=== PATIENT | male | born 1950 | race Caucasian/White ===

== ENCOUNTER → 2017-03-01 | Outpatient (CLI) | payer OTHER ==
[~2017-03-01] MED LIST: ATV5X PO; CITA40TA4 PO; GLC/500 PO; HYDR50CA2 PO; IPRA1AER2 INH; LVQ500 PO; METO25TA56 PO; PANT40TA PO; PRVHFAIN INH; RSP1 PO; SIMV10TA2 PO; TRAZ50TA35 PO
--- NOTE | 2017-03-01 16:16 | DIAGNOSTIC IMAGING REPORT ---
LUMBAR SPINE MRI HISTORY: CHRONIC LEFT SIDED BACK Pain; sciatica TECHNIQUE: Multiplanar multisequence MRI of the lumbar spine was performed without the use of contrast. COMPARISON: Lumbar spine 11/17/2014. FINDINGS: For the purpose of the report the L5-S1 disc space will be located on axial image 27 of 30. Motion artifact resulting in suboptimal evaluation of the lumbar spine. Alignment and curvature are intact. No fracture or subluxation. The conus terminates at the L1 level. Diffuse disc desiccation with minimal disc space narrowing at L3-L4. Paraspinal soft tissues are unremarkable. Moderate facet degenerative changes at L4-L5. There are few scattered small vertebral body hemangiomas measuring up to 7 mm L1-L2: No significant central canal or neural foraminal narrowing. L2-L3: No significant central canal or neural foraminal narrowing. L3-L4: Small broad-based posterior disc bulge without significant central canal or neural foraminal narrowing. L4-L5: Small broad-based posterior disc bulge with facet hypertrophy. This results in mild central canal and mild bilateral neural foraminal narrowing. L5-S1: No significant central canal or neural foraminal narrowing. IMPRESSION: 1. Motion artifact resulting in suboptimal evaluation of the lumbar spine. 2. No fracture or subluxation. 3. Small broad-based posterior disc bulge with facet hypertrophy at L4-L5 resulting in mild central canal and mild bilateral neural foraminal narrowing. Electronically signed by: Pedrito Mitchell M.D. 03/01/2017 4:13 PM Dictated Date/Time: 03/01/2017 4:08 PM
== END | disposition home or self-care (01) ==
LOC: C.MRI 14:08
PROVIDERS: ATTEND Internal Medicine
DX: M54.42 Lumbago with sciatica, left side (principal); G89.29 Other chronic pain; M51.26 Other intervertebral disc displacement, lumbar region

== ENCOUNTER 2023-04-18 17:15 | Inpatient (IN) ==
[2023-04-18 17:49] LABS: Basophils # (auto) 0.03 K/uL (0-0.2); Basophils % (auto) 0.4 %; Eosinophils # (auto) 0.06 K/uL (0-0.50); Eosinophils % (auto) 0.8 %; Hematocrit (blood only) 37.1 % (42.0-52.0); Hemoglobin 12.6 g/dl (14.0-18.0); Immature Granulocytes # (auto) 0.02 K/uL (0.01-0.20); Immature Granulocytes % (auto) 0.3 %; Lymphocytes % (auto) 21.1 %; Mean Corpuscular Hemoglobin 31.3 pg (25.0-34.0); Mean Corpuscular Volume 92.3 fL (80.0-100.0); Mean Platelet Volume 10.9 fL (9.4-12.4); Monocytes # (auto) 0.63 K/uL (0.11-0.59); Monocytes % (auto) 8.3 %; Neutrophils # (auto) 5.23 K/uL (1.40-6.50); Neutrophils % (auto) 69.1 %; Platelet Count 201 K/uL (130-400); RDW Coefficient of Variation 12.1 % (11.5-14.5); RDW Standard Deviation 41.1 fL (36.4-46.3); Red Blood Count 4.02 M/uL (4.70-6.10); White Blood Count 7.57 K/ul (4.8-10.8)
[2023-04-18] MEDS ORDERED: ACETAMINOPHEN 1,000 MG/100 ML VIAL IV STA (18:03)
[2023-04-18 18:07] LABS: Albumin Globulin Ratio 1.5 (0.9-2); Albumin Level 4.4 gm/dl (3.4-5.0); BUN Creatinine Ratio 12.4 (10-20); Bilirubin,Total 0.5 mg/dl (0.2-1.0); Calcium 9.4 mg/dl (8.6-10.3); Creatinine Clr Calc Pharmacy 43.3 ml/min; Est GFR (African American) 48.1 ml/min; Est GFR (Non-African American) 41.5 ml/min; Magnesium 1.5 mg/dl (1.7-2.4); Potassium 4.8 mmol/L (3.5-5.1); Total Protein 7.4 gm/dl (6.0-8.3)
[2023-04-18 18:13] LABS: Troponin I High Sensitivity 4.7 pg/ml (0-20)
--- NOTE | 2023-04-18 18:14 | Emergency Department Note ---
Impression & Plan Brain TIA, Hypomagnesemia, ERIC (acute kidney injury) Admit to the [facility] ED Provider Note NAME: SOSA SAMS AGE: 72 SEX: M ARRIVES VIA: Ambulance INFORMANT: Patient ED PROVIDER(S): Mary Lazo DO CHIEF COMPLAINT: Fall PLAN: Disposition: Admit to the [facility] Condition: Fair MEDICAL DECISION MAKING: This is a 72-year-old male patient who presents to the emergency department afte r suffering a fall at home where he was unable to get up. The patient explains that he was stooping down to plug in his moped when he lost his balance and fell forward. He was on the floor for approximately 1 hour when he pushed his medic alert pendant. EMS found the patient with right-sided facial droop, right arm weakness and right leg weakness. Upon arrival in the emergency department, his neurological symptoms seem to have improved slightly. By the time I evaluated him, they had resolved. Laboratory studies revealed mild anemia with a hemoglobin of 12.6. There was no leukocytosis. The patient did have mild kidney injury with a creatinine of 1.61. He was hypomagnesemic with a magnesium of 1.5. This was replaced with a gram of IV magnesium. Patient appeared to be moderately dehydrated on physical exam and this could account for his ERIC. He was given a fluid bolus of IV normal saline solution. I discussed the case with the patient's sister who helps care for him. She states that his mental status had seemed normal the last time she spoke with him. She denies that he has ever had a TIA or CVA before. He went for CT scan of the brain here in the emergency department which was unremarkable. The patient did complain of low back pain as a result of the fall. CT scan of the lumbar spine was negative for any acute traumatic injury. [facility] to the [facility]. Triage Nursing notes reviewed and agree with them. Additional history obtained from EMS and I spoke with the patient's sister who last saw him 6 days ago. External records were reviewed from the [facility] system Vital Signs: reviewed and unremarkable Differential diagnosis: CVA, TIA, renal failure, electrolyte imbalance, lumbar fracture ER treatment provided: Cardiac monitoring EKG IV normal saline bolus IV Tylenol IV magnesium IV fentanyl Diagnostics interpreted by me: ECG: Sinus tachycardia at a rate of [address] segment elevation or signs of ischemia. There is no ectopy. Cardiac Monitoring: Sinus tachycardia at 110 Laboratory studies: See below Imaging studies: As per radiology CT brain: See radiology report HPI: 72/M arrives for evaluation of fall and back pain. Patient explains to me that he was stooping down to plug in his moped when he lost his balance and fell forward and was unable to get up off the floor. He used his medic alert pendant to summons EMS. When EMS arrived on scene, they found the patient to have right-sided facial droop and right arm and leg weakness. They also felt that he was leaning to the right. He also seem to have some confusion and difficulty answering questions. PAST MEDICAL HISTORY:Diabetes, COPD, hyperlipidemia, GERD SOCIAL HISTORY:Patient lives alone; his sister provides meals and organizes his meds HOME MEDICATIONS:See list ALLERGIES:See list VITALS:See Below PHYSICAL EXAMINATION: HEENT: Head - normocephalic and atraumatic. Pupils are equal, round, and reactive to light. Extraocular eye muscles are intact and sclera are anicteric. Nose - moist nasal mucosa without discharge. Mouth - moist buccal mucosa. There is old food noted about his mouth. Oropharynx is nonerythematous and there is no tonsillar exudate or edema noted. Neck: Supple; no cervical lymphadenopathy Heart: Tachycardic rate and rhythm. There is a normal S1 and S2 with no murmurs, clicks, or gallops appreciated. Lungs: Clear to auscultation bilaterally with no wheezes, rales, or rhonchi. Abdomen: Soft, completely nontender, nondistended, with good bowel sounds. There are no palpable pulsatile masses or hepatosplenomegaly. There is no guarding, rigidity, or rebound noted. Extremities: No evidence of cyanosis, clubbing, or edema. There are easily palpable peripheral pulses. Neuro:The patient is awake and alert, oriented to place but was confused with the month. His muscle strength is 5/5 in all 4 extremities. The patient has equal early childhood special educator strength and equal pedal push and pull. There are no cerebellar signs. Back: Patient has some mild reproducible discomfort with palpation over the l umbar spine. ED COURSE: Times/Reassessments: 1730: The patient was evaluated in room B12. A complete history and physical was performed. A full neuro exam was performed and the patient's right-sided weakness seems to have resolved. The patient went for CT scan of the brain. An order was placed for continuous cardiac monitoring. The patient was in a sinus tachycardia at 110. Patient was given IV Tylenol for his significant low back pain. He went on to have a CT scan of the lumbar spine to rule out fracture as this complaint of back pain was new for him. I did discuss the case with the patient's sister who helps care for him. Patient was given a dose of IV fentanyl for his persistent back pain I reviewed the results of the labs and CT scans with the patient and [facility] and [facility] will [facility] for further management. 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 Beliefs That Will Affect Care: None Current Living Situation: Alone Other Information That Helps Us Care for You: No Feels Safe at Home: Yes Safety Concerns: Feels Safe At This Time Assistive Devices: None Allergies Allergies Allergy/AdvReac Type Severity Reaction Status Date / Time iodine AdvReac Intermediate FEELS WARM Verified 04/18/23 18:44 ALL OVER morphine AdvReac Intermediate NAUSEA/VOMI Verified 04/18/23 18:44 TING Penicillins AdvReac Intermediate NAUSEA/VOMI Verified 04/18/23 18:44 TING Home Meds Home Medications Medication Instructions Recorded Confirmed citalopram 40 mg tablet 40 mg PO DAILY 01/31/20 04/18/23 gabapentin 100 mg capsule 100 mg PO TID 01/31/20 04/18/23 hydroxyzine HCl 25 mg tablet 25 mg PO BID 01/31/20 04/18/23 metformin 500 mg tablet 500 mg PO TIDM 01/31/20 04/18/23 pantoprazole 40 mg tablet,delayed 40 mg PO DAILYBB 01/31/20 04/18/23 release risperidone 2 mg tablet 2 mg PO HS 01/31/20 04/18/23 simvastatin 10 mg tablet 10 mg PO HS 01/31/20 04/18/23 trazodone 50 mg tablet 50 mg PO HS 01/31/20 04/18/23 albuterol sulfate 90 mcg/actuation 2 puff inhalation Q4H PRN Wheezing 04/18/23 04/18/23 aerosol inhaler (ProAir HFA) cyanocobalamin (vitamin B-12) 500 500 mcg PO Q OTHER DAY 04/18/23 04/18/23 mcg tablet (Vitamin B-12) lisinopril 5 mg tablet 5 mg PO QAM 04/18/23 04/18/23 aspirin 81 mg PO DAILY 04/19/23 04/19/23 Results & Data (ED) Vital Signs Vital Signs - 24 hr 04/18/23 17:26 04/18/23 17:30 04/18/23 17:20 Temperature 37.7 C H Temperature Source Oral Pulse Rate 106 H 100 H Pulse Rate [Left Finger] Pulse Rate from SpO2 Sensor Pulse Rhythm Regular Pulse Rhythm [Left Finger] Pulse Strength Normal Pulse Strength [Left Finger] Respiratory Rate 16 Respiratory Effort / Characteristics Non-Labored Spontaneous Respiratory Depth Normal Respiratory Pattern Regular Blood Pressure 121/72 Blood Pressure [Left Arm] Blood Pressure Mean 88 Blood Pressure Mean [Left Arm] Blood Pressure Position Sitting Blood Pressure Position [Left Arm] Pulse Oximetry 91 90 Oxygen Delivery Method Room Air Room Air Oxygen Flow Rate Sepsis Recent Fever Within 48 Hours Yes Sepsis New/Unexplained Change in Mental Status Yes Sepsis Action Taken by Nursing No Action Required 04/18/23 17:30 04/18/23 18:40 04/18/23 20:00 Temperature Temperature Source Pulse Rate Pulse Rate [Left Finger] 89 75 75 Pulse Rate from SpO2 Sensor Pulse Rhythm Pulse Rhythm [Left Finger] Regular Pulse Strength Pulse Strength [Left Finger] Normal Respiratory Rate 20 14 16 Respiratory Effort / Characteristics Non-Labored Spontaneous Respiratory Depth Normal Respiratory Pattern Regular Blood Pressure Blood Pressure [Left Arm] 119/70 146/85 H 146/79 H Blood Pressure Mean Blood Pressure Mean [Left Arm] 86 105 101 Blood Pressure Position Blood Pressure Position [Left Arm] Sitting Sitting Pulse Oximetry 91 94 94 Oxygen Delivery Method Room Air Room Air Oxygen Flow Rate Sepsis Recent Fever Within 48 Hours Sepsis New/Unexplained Change in Mental Status Sepsis Action Taken by Nursing 04/18/23 21:10 04/18/23 22:00 04/18/23 23:00 Temperature Temperature Source Pulse Rate 86 Pulse Rate [Left Finger] 85 Pulse Rate from SpO2 Sensor Pulse Rhythm Pulse Rhythm [Left Finger] Pulse Strength Pulse Strength [Left Finger] Respiratory Rate 18 Respiratory Effort / Characteristics Respiratory Depth Respiratory Pattern Blood Pressure 130/75 Blood Pressure [Left Arm] 113/79 Blood Pressure Mean 86 Blood Pressure Mean [Left Arm] 90 Blood Pressure Position Blood Pressure Position [Left Arm] Pulse Oximetry 97 Oxygen Delivery Method Nasal Cannula Oxygen Flow Rate 2 Sepsis Recent Fever Within 48 Hours Sepsis New/Unexplained Change in Mental Status Sepsis Action Taken by Nursing 04/18/23 23:00 04/18/23 23:20 04/18/23 23:40 Temperature Temperature Source Pulse Rate 79 76 83 Pulse Rate [Left Finger] Pulse Rate from SpO2 Sensor 78 76 84 Pulse Rhythm Pulse Rhythm [Left Finger] Pulse Strength Pulse Strength [Left Finger] Respiratory Rate 15 15 15 Respiratory Effort / Characteristics Respiratory Depth Respiratory Pattern Blood Pressure Blood Pressure [Left Arm] Blood Pressure Mean Blood Pressure Mean [Left Arm] Blood Pressure Position Blood Pressure Position [Left Arm] Pulse Oximetry 97 95 96 Oxygen Delivery Method Oxygen Flow Rate Sepsis Recent Fever Within 48 Hours Sepsis New/Unexplained Change in Mental Status Sepsis Action Taken by Nursing 04/19/23 00:00 04/19/23 00:00 04/19/23 00:20 Temperature Temperature Source Pulse Rate 75 83 Pulse Rate [Left Finger] Pulse Rate from SpO2 Sensor 76 81 Pulse Rhythm Pulse Rhythm [Left Finger] Pulse Strength Pulse Strength [Left Finger] Respiratory Rate 16 18 Respiratory Effort / Characteristics Respiratory Depth Respiratory Pattern Blood Pressure 123/73 Blood Pressure [Left Arm] Blood Pressure Mean 100 Blood Pressure Mean [Left Arm] Blood Pressure Position Blood Pressure Position [Left Arm] Pulse Oximetry 97 96 Oxygen Delivery Method Oxygen Flow Rate Sepsis Recent Fever Within 48 Hours Sepsis New/Unexplained Change in Mental Status Sepsis Action Taken by Nursing Laboratory Data 04/18/23 17:34 04/18/23 17:34 Lab Results 04/18/23 04/18/23 04/18/23 Range/Units 17:27 17:34 17:34 WBC 7.57 (4.8-10.8) K/ul RBC 4.02 L (4.70-6.10) M/uL Hgb 12.6 L (14.0-18.0) g/dl Hct 37.1 L (42.0-52.0) % MCV 92.3 (80.0-100.0) fL MCH 31.3 (25.0-34.0) pg MCHC 34.0 (32.0-36.0) g/dL RDW Std Deviation 41.1 (36.4-46.3) fL RDW Coeff of Janel 12.1 (11.5-14.5) % Plt Count 201 (130-400) K/uL MPV 10.9 (9.4-12.4) fL Immature Gran % (Auto) 0.3 % Neut % (Auto) 69.1 % Lymph % (Auto) 21.1 % Yolo % (Auto) 8.3 % Eos % (Auto) 0.8 % Baso % (Auto) 0.4 % Neut # (Auto) 5.23 (1.40-6.50) K/uL Lymph # (Auto) 1.60 (1.2-3.4) K/uL Yolo # (Auto) 0.63 H (0.11-0.59) K/uL Eos # (Auto) 0.06 (0-0.50) K/uL Baso # (Auto) 0.03 (0-0.2) K/uL Immature Gran # (Auto) 0.02 (0.01-0.20) K/uL PT 10.3 (9.0-12.0) Seconds INR 0.9 (0.9-1.1) APTT 24.5 (21.0-31.0) Seconds PTT Ratio 0.9 Sodium (136-145) mmol/L Potassium (3.5-5.1) mmol/L Chloride (98-107) mmol/L Carbon Dioxide (21-32) mmol/L Anion Gap (3-11) BUN (6-23) mg/dl Creatinine (0.6-1.4) mg/dl Est Cr Clr Drug Dosing ml/min Est GFR ( Amer) ml/min Est GFR (Non-Af Amer) ml/min BUN/Creatinine Ratio (10-20) Glucose (70-99(Fasting)) mg/dl POC Glucose 180 H (70-99) mg/dl Calcium (8.6-10.3) mg/dl Magnesium (1.7-2.4) mg/dl Total Bilirubin (0.2-1.0) mg/dl AST (13-39) U/L ALT (7-52) U/L Alkaline Phosphatase (34-104) U/L Total Creatine Kinase (30-223) U/L Troponin I High Sens (0-20) pg/ml Total Protein (6.0-8.3) gm/dl Albumin (3.4-5.0) gm/dl Globulin (2.5-4.0) gm/dl Albumin/Globulin Ratio (0.9-2) Procalcitonin (0-0.5) ng/ml TSH (0.300-4.500) uIu/ml Free T4 (0.61-1.60) ng/dl Urine Color Urine Appearance (Clear) Urine pH (4.5-7.5) Ur Specific Caspian (1.000-1.030) Urine Protein (Negative) Urine Glucose (UA) (Negative) Urine Ketones (Negative) Urine Blood (Negative) Urine Nitrite (Negative) Urine Bilirubin (Negative) Urine Urobilinogen (Negative) Ur Leukocyte Esterase (Negative) Lyme Disease IgG Ab (Negative) Lyme Disease IgM Ab (Negative) SARS-CoV-2, RNA, NAAT (NEGATIVE) Blood Type Antibody Screen 04/18/23 04/18/23 04/18/23 Range/Units 17:34 17:34 17:34 WBC (4.8-10.8) K/ul RBC (4.70-6.10) M/uL Hgb (14.0-18.0) g/dl Hct (42.0-52.0) % MCV (80.0-100.0) fL MCH (25.0-34.0) pg MCHC (32.0-36.0) g/dL RDW Std Deviation (36.4-46.3) fL RDW Coeff of Janel (11.5-14.5) % Plt Count (130-400) K/uL MPV (9.4-12.4) fL Immature Gran % (Auto) % Neut % (Auto) % Lymph % (Auto) % Yolo % (Auto) % Eos % (Auto) % Baso % (Auto) % Neut # (Auto) (1.40-6.50) K/uL Lymph # (Auto) (1.2-3.4) K/uL Yolo # (Auto) (0.11-0.59) K/uL Eos # (Auto) (0-0.50) K/uL Baso # (Auto) (0-0.2) K/uL Immature Gran # (Auto) (0.01-0.20) K/uL PT (9.0-12.0) Seconds INR (0.9-1.1) APTT (21.0-31.0) Seconds PTT Ratio Sodium 135 L (136-145) mmol/L Potassium 4.8 (3.5-5.1) mmol/L Chloride 100 (98-107) mmol/L Carbon Dioxide 26 (21-32) mmol/L Anion Gap 9 (3-11) BUN 20 (6-23) mg/dl Creatinine 1.61 H (0.6-1.4) mg/dl Est Cr Clr Drug Dosing 43.3 ml/min Est GFR ( Amer) 48.1 ml/min Est GFR (Non-Af Amer) 41.5 ml/min BUN/Creatinine Ratio 12.4 (10-20) Glucose 175 H (70-99(Fasting)) mg/dl POC Glucose (70-99) mg/dl Calcium 9.4 (8.6-10.3) mg/dl Magnesium 1.5 L (1.7-2.4) mg/dl Total Bilirubin 0.5 (0.2-1.0) mg/dl AST 14 (13-39) U/L ALT 11 (7-52) U/L Alkaline Phosphatase 93 (34-104) U/L Total Creatine Kinase 63 (30-223) U/L Troponin I High Sens 4.7 (0-20) pg/ml Total Protein 7.4 (6.0-8.3) gm/dl Albumin 4.4 (3.4-5.0) gm/dl Globulin 3.0 (2.5-4.0) gm/dl Albumin/Globulin Ratio 1.5 (0.9-2) Procalcitonin < 0.05 (0-0.5) ng/ml TSH (0.300-4.500) uIu/ml Free T4 (0.61-1.60) ng/dl Urine Color Urine Appearance (Clear) Urine pH (4.5-7.5) Ur Specific Caspian (1.000-1.030) Urine Protein (Negative) Urine Glucose (UA) (Negative) Urine Ketones (Negative) Urine Blood (Negative) Urine Nitrite (Negative) Urine Bilirubin (Negative) Urine Urobilinogen (Negative) Ur Leukocyte Esterase (Negative) Lyme Disease IgG Ab Negative (Negative) Lyme Disease IgM Ab Negative (Negative) SARS-CoV-2, RNA, NAAT (NEGATIVE) Blood Type Antibody Screen 04/18/23 04/18/23 04/18/23 Range/Units 17:34 17:51 21:00 WBC (4.8-10.8) K/ul RBC (4.70-6.10) M/uL Hgb (14.0-18.0) g/dl Hct (42.0-52.0) % MCV (80.0-100.0) fL MCH (25.0-34.0) pg MCHC (32.0-36.0) g/dL RDW Std Deviation (36.4-46.3) fL RDW Coeff of Janel (11.5-14.5) % Plt Count (130-400) K/uL MPV (9.4-12.4) fL Immature Gran % (Auto) % Neut % (Auto) % Lymph % (Auto) % Yolo % (Auto) % Eos % (Auto) % Baso % (Auto) % Neut # (Auto) (1.40-6.50) K/uL Lymph # (Auto) (1.2-3.4) K/uL Yolo # (Auto) (0.11-0.59) K/uL Eos # (Auto) (0-0.50) K/uL Baso # (Auto) (0-0.2) K/uL Immature Gran # (Auto) (0.01-0.20) K/uL PT (9.0-12.0) Seconds INR (0.9-1.1) APTT (21.0-31.0) Seconds PTT Ratio Sodium (136-145) mmol/L Potassium (3.5-5.1) mmol/L Chloride (98-107) mmol/L Carbon Dioxide (21-32) mmol/L Anion Gap (3-11) BUN (6-23) mg/dl Creatinine (0.6-1.4) mg/dl Est Cr Clr Drug Dosing ml/min Est GFR ( Amer) ml/min Est GFR (Non-Af Amer) ml/min BUN/Creatinine Ratio (10-20) Glucose (70-99(Fasting)) mg/dl POC Glucose (70-99) mg/dl Calcium (8.6-10.3) mg/dl Magnesium (1.7-2.4) mg/dl Total Bilirubin (0.2-1.0) mg/dl AST (13-39) U/L ALT (7-52) U/L Alkaline Phosphatase (34-104) U/L Total Creatine Kinase (30-223) U/L Troponin I High Sens (0-20) pg/ml Total Protein (6.0-8.3) gm/dl Albumin (3.4-5.0) gm/dl Globulin (2.5-4.0) gm/dl Albumin/Globulin Ratio (0.9-2) Procalcitonin (0-0.5) ng/ml TSH 4.916 H (0.300-4.500) uIu/ml Free T4 1.02 (0.61-1.60) ng/dl Urine Color Urine Appearance (Clear) Urine pH (4.5-7.5) Ur Specific Caspian (1.000-1.030) Urine Protein (Negative) Urine Glucose (UA) (Negative) Urine Ketones (Negative) Urine Blood (Negative) Urine Nitrite (Negative) Urine Bilirubin (Negative) Urine Urobilinogen (Negative) Ur Leukocyte Esterase (Negative) Lyme Disease IgG Ab (Negative) Lyme Disease IgM Ab (Negative) SARS-CoV-2, RNA, NAAT NEGATIVE (NEGATIVE) Blood Type O Positive Antibody Screen NEGATIVE 04/18/23 Range/Units 23:40 WBC (4.8-10.8) K/ul RBC (4.70-6.10) M/uL Hgb (14.0-18.0) g/dl Hct (42.0-52.0) % MCV (80.0-100.0) fL MCH (25.0-34.0) pg MCHC (32.0-36.0) g/dL RDW Std Deviation (36.4-46.3) fL RDW Coeff of Janel (11.5-14.5) % Plt Count (130-400) K/uL MPV (9.4-12.4) fL Immature Gran % (Auto) % Neut % (Auto) % Lymph % (Auto) % Yolo % (Auto) % Eos % (Auto) % Baso % (Auto) % Neut # (Auto) (1.40-6.50) K/uL Lymph # (Auto) (1.2-3.4) K/uL Yolo # (Auto) (0.11-0.59) K/uL Eos # (Auto) (0-0.50) K/uL Baso # (Auto) (0-0.2) K/uL Immature Gran # (Auto) (0.01-0.20) K/uL PT (9.0-12.0) Seconds INR (0.9-1.1) APTT (21.0-31.0) Seconds PTT Ratio Sodium (136-145) mmol/L Potassium (3.5-5.1) mmol/L Chloride (98-107) mmol/L Carbon Dioxide (21-32) mmol/L Anion Gap (3-11) BUN (6-23) mg/dl Creatinine (0.6-1.4) mg/dl Est Cr Clr Drug Dosing ml/min Est GFR ( Amer) ml/min Est GFR (Non-Af Amer) ml/min BUN/Creatinine Ratio (10-20) Glucose (70-99(Fasting)) mg/dl POC Glucose (70-99) mg/dl Calcium (8.6-10.3) mg/dl Magnesium (1.7-2.4) mg/dl Total Bilirubin (0.2-1.0) mg/dl AST (13-39) U/L ALT (7-52) U/L Alkaline Phosphatase (34-104) U/L Total Creatine Kinase (30-223) U/L Troponin I High Sens (0-20) pg/ml Total Protein (6.0-8.3) gm/dl Albumin (3.4-5.0) gm/dl Globulin (2.5-4.0) gm/dl Albumin/Globulin Ratio (0.9-2) Procalcitonin (0-0.5) ng/ml TSH (0.300-4.500) uIu/ml Free T4 (0.61-1.60) ng/dl Urine Color Yellow Urine Appearance Clear (Clear) Urine pH 5.0 (4.5-7.5) Ur Specific Caspian 1.013 (1.000-1.030) Urine Protein Negative (Negative) Urine Glucose (UA) 2+ H (Negative) Urine Ketones Negative (Negative) Urine Blood Negative (Negative) Urine Nitrite Negative (Negative) Urine Bilirubin Negative (Negative) Urine Urobilinogen Negative (Negative) Ur Leukocyte Esterase Negative (Negative) Lyme Disease IgG Ab (Negative) Lyme Disease IgM Ab (Negative) SARS-CoV-2, RNA, NAAT (NEGATIVE) Blood Type Antibody Screen Administered Medications Acetaminophen (Acetaminophen 325 Mg Tab) 650 mg PO Q4H PRN PRN Reason: Pain or Fever Stop: 05/19/23 01:21 Last Admin: 04/19/23 01:54 Dose: 650 mg Documented By: QG Citalopram Hydrobromide (Citalopram 40 Mg Tab) 40 mg PO DAILY [facility] Stop: 05/19/23 08:59 Last Admin: 04/19/23 08:13 Dose: 40 mg Documented By: PALLAVI Gabapentin (Gabapentin 100 Mg Cap) 100 mg PO TID [facility] Stop: 05/19/23 08:59 Last Admin: 04/19/23 08:13 Dose: 100 mg Documented By: PALLAVI Heparin Sodium (Porcine) (Heparin Sod 5,000 Unit/0.5 Ml Vial) 5,000 units SQ Q8 [facility] Stop: 05/19/23 05:59 Last Admin: 04/19/23 05:48 Dose: 5,000 units Documented By: QG Sodium Chloride (Nss 1000ml) 1,000 mls @ 75 mls/hr IV .[id number] ONE Stop: 04/19/23 13:08 Last Admin: 04/19/23 01:46 Dose: 75 mls/hr Documented By: QG Insulin Aspart (Insulin Aspart Per Unit Charge) 0 units SC ACHS [facility] Stop: 05/19/23 01:21 Last Admin: 04/19/23 08:14 Dose: 2 units Documented By: PALLAVI Co-signed By: DELANEY Admin: 04/19/23 01:52 Dose: 2 units Documented By: SonidoG Co-signed By: LEONARD Insulin Glargine (Lantus Per Unit Charge) 5 units SQ DAILY [facility] Stop: 05/19/23 08:59 Last Admin: 04/19/23 08:14 Dose: 5 units Documented By: PALLAVI Co-signed By: DELANEY Oxycodone HCl (Oxycodone Hcl Ir 5 Mg Tab (Immediate Release)) 5 mg PO Q4H PRN PRN Reason: Pain Stop: 05/03/23 01:21 Last Admin: 04/19/23 11:19 Dose: 5 mg Documented By: Admin: 04/19/23 05:54 Dose: 5 mg Documented By: MICKY Pantoprazole Sodium (Pantoprazole 40 Mg Tab) 40 mg PO DAILYBB FAVIOLA Stop: 05/19/23 06:29 Last Admin: 04/19/23 05:48 Dose: 40 mg Documented By: SonidoG Discontinued Medications Aspirin (Aspirin 81 Mg Chew) 324 mg PO NOW STA Stop: 04/19/23 00:24 Last Admin: 04/19/23 00:37 Dose: 324 mg Documented By: GENNARO Clopidogrel Bisulfate (Clopidogrel Bisulfate 75 Mg Tab) 75 mg PO NOW ONE Stop: 04/19/23 00:24 Last Admin: 04/19/23 00:37 Dose: 75 mg Documented By: GENNARO Fentanyl Citrate (Fentanyl Citrate Pf 100 Mcg/2 Ml Vial) 50 mcg IV NOW STA Stop: 04/18/23 20:19 Last Admin: 04/18/23 20:36 Dose: 50 mcg Documented By: JAC Acetaminophen (Ofirmev) 1,000 mg in 100 mls @ 400 mls/hr IV NOW STA Stop: 04/18/23 18:17 Last Infusion: 04/18/23 18:55 Dose: 0 mls/hr Documented By: Admin: 04/18/23 18:10 Dose: 400 mls/hr Documented By: MARIA M Sodium Chloride (Nss) 500 mls @ 999 mls/hr IV .Q31M ONE Stop: 04/18/23 18:55 Last Infusion: 04/18/23 18:55 Dose: 0 mls/hr Documented By: Admin: 04/18/23 18:25 Dose: 999 mls/hr Documented By: MARIA M Magnesium Sulfate/Dextrose (Magnesium Sulfate / D5w) 1 gm in 100 mls @ 100 mls/hr IV NOW STA Stop: 04/18/23 19:24 Last Infusion: 04/18/23 19:38 Dose: 0 mls/hr Documented By: Admin: 04/18/23 18:38 Dose: 100 mls/hr Documented By: MARIA M Magnesium Sulfate/Dextrose (Magnesium Sulfate / D5w) 1 gm in 100 mls @ 50 mls/hr IV ONE ONE Stop: 04/19/23 01:19 Last Infusion: 04/19/23 01:42 Dose: 0 mls/hr Documented By: Admin: 04/19/23 00:20 Dose: 50 mls/hr Documented By: GENNARO Ondansetron HCl (Ondansetron Inj 2 Mg/Ml 2 Ml Vial) 4 mg IV NOW STA Stop: 04/18/23 20:19 Last Admin: 04/18/23 20:36 Dose: 4 mg Documented By: JAC Imaging Data Radiologist's Impression: Chest X-Ray 04/18/23 23:21 XR chest 1V portable HISTORY: 72 years-old Male fever, renal failure acute fever COMPARISON: Chest CT 01/31/2020 TECHNIQUE: AP view of the chest FINDINGS: Cardiac silhouette is enlarged. Atherosclerosis of the aorta. No pneumothorax, pleural effusion or overt pulmonary edema. Mild subsegmental bibasilar atelectasis. Degenerative changes of the shoulders and spine. Hiatal hernia with epigastric surgical clips. IMPRESSION: No acute process of the chest. ACT 112: Negative or not required by law. The above report was generated using voice recognition software. It may contain grammatical, syntax or spelling errors. Electronically signed by: Ankit Melton M.D. 04/19/2023 8:49 AM Discharge Plan Visit Data Chief Complaint: Stroke/CVA Symptoms Stated Complaint: LIGHTHEADED ED Provider: Mary Lazo Discharge Problem: Brain TIA, Hypomagnesemia, ERIC (acute kidney injury) Patient Disposition: Admitted As Inpatient Discharge Instructions Interventions: ED Discharge Assessment Last Done: 04/19/23 00:47
[2023-04-18] MEDS ORDERED: SODIUM CHLORIDE 0.9% 500 ML IV ONE (18:25)
[2023-04-18] MEDS ORDERED: MAGNESIUM SULFATE / D5W 1 GM/100 ML BAG IV STA (18:25)
[2023-04-18 18:28] LABS: INR 0.9 (0.9-1.1); Partial Thromboplastin Ratio 0.9; Partial Thromboplastin Time 24.5 Seconds (21.0-31.0); Prothrombin Time 10.3 Seconds (9.0-12.0)
--- NOTE | 2023-04-18 19:37 | CT Scan Report ---
CT head/brain wo con CLINICAL HISTORY: neuro deficit, acute stroke suspected Technique: Contiguous axial CT images of the head were acquired from the base of the skull to the kenney juno without intravenous contrast administration. Images were viewed in brain, subdural and bone [facility]. Automated dose lowering techniques and/or adjustment according to patient size were utilized for this exam. Comparison: None available at the time of this dictation. Findings: Areas of decreased attenuation are present in the periventricular and subcortical white matter bilate rally consistent with small vessel ischemic disease. Generalized cerebral atrophy with commensurate e nlargement of the ventricles, sulci, and cisterns is also present. There is no acute intracranial hem orrhage or evidence of acute territorial infarction. No shift of the midline structures, mass effect, or extra-axial abnormalities are shown. Atherosclerotic calcifications are present in the intracran ial segments of the internal carotid arteries. Imaged portions of the paranasal sinuses and mastoid air cells are clear. The orbits appear normal. There are no acute fractures of the calvaria or scalp swelling. Impression: No acute intracranial hemorrhage, no evidence of acute territorial infarction or other acute intracra nial disease process. ACT 112: Negative or not required by law. Electronically signed by: Rickey Montes M.D. 04/18/2023 7:36 PM
[2023-04-18] MEDS ORDERED: fentaNYL citrate PF 100 MCG/2 ML VIAL IV STA (20:18)
[2023-04-18] MEDS ORDERED: ONDANSETRON INJ 2 MG/ML 2 ML VIAL IV STA (20:18)
--- NOTE | 2023-04-18 22:55 | CT Scan Report ---
Exam(s): CT L SPINE EXAM: CT Lumbar Spine Without Intravenous Contrast CLINICAL HISTORY: fall - back pain. TECHNIQUE: Axial computed tomography images of the lumbar spine without intravenous contrast. Automated exposure control was utilized for the study. A dose lowering technique was utilized adhering to the principles of ALARA. COMPARISON: CT lumbar spine dated 01/31/2020 FINDINGS: Vertebrae: The lumbar vertebral body heights are maintained. No anterolisthesis or retrolisthesis noted. The pedicles, facet joints, spinous processes and transverse processes are intact. Hypertrophic changes involving the facet joints, most notable at L4-5 level. Discs/spinal canal/neural foramina: Similar disc space narrowing with marginal anomaly anterior hypertrophic changes throughout the lumbar spine without appreciable alteration from the previous examination. Stable ankylosis of the sacroiliac joints. Soft tissues: No significant acute traumatic paraspinal soft tissue abnormality identified. IMPRESSION: No acute osseous traumatic injury or significant abnormal alignment involving the lumbar spine. No appreciable alteration from the previous examination with stable appearing degenerative changes noted. Electronically signed by: Fuentes Pulido MD 04/18/23 22:54 PM
[2023-04-18] MEDS ORDERED: MAGNESIUM SULFATE / D5W 1 GM/100 ML BAG IV ONE (23:20)
[2023-04-18] MEDS ORDERED: SODIUM CHLORIDE 0.9% 1000ML 1,000 ML IV ONE (23:49)
[2023-04-19 00:04] LABS: Appearance Urine Clear (Clear); Bilirubin Urine Negative (Negative); Blood Urine Negative (Negative); Color Urine Yellow; Glucose Urine UA 2+ (Negative); Ketones Urine Negative (Negative); Leukocyte Esterase Urine Negative (Negative); Nitrite Urine Negative (Negative); Protein Urine Negative (Negative); Specific Gravity Urine 1.013 (1.000-1.030); Urobilinogen Urine Negative (Negative)
[2023-04-19 00:04] LABS: Lyme Ab IgG w/WB Rflx Negative (Negative); Lyme Ab IgM w/WB Rflx Negative (Negative)
[2023-04-19] MEDS ORDERED: ASPIRIN 81 MG CHEW PO STA (00:23)
[2023-04-19] MEDS ORDERED: CLOPIDOGREL BISULFATE 75 MG TAB PO ONE (00:23)
[2023-04-19] MEDS ORDERED: GLUCAGON FOR INJ 1 MG VIAL SQ PRN (01:22)
[2023-04-19] MEDS ORDERED: CARBOHYDRATES FOR HYPOGLYCEMIA PO PRN (01:22)
[2023-04-19] MEDS ORDERED: GLUCOSE 10 TAB/TUBE PO PRN (01:22)
[2023-04-19] MEDS ORDERED: DEXTROSE 50% 50 ML SYRINGE IV PRN (01:22)
[2023-04-19] MEDS ORDERED: PROMETHAZINE HCL 12.5 MG in SODIUM CHLORIDE 0.9% 50 ML IV PRN (01:22)
[2023-04-19] MEDS ORDERED: GLUCOSE 40% GEL 15 GM TUBE PO PRN (01:22)
[2023-04-19 01:45] LABS: Thyroid Stimulating Hormone 4.916 uIu/ml (0.300-4.500)
[2023-04-19] MEDS: INSULIN ASPART PER UNIT CHARGE SC SCH ×5 (01:52→21:57)
[2023-04-19] MEDS: ACETAMINOPHEN 325 MG TAB PO PRN (01:54)
[2023-04-19 02:49] LABS: T4 Free Thyroxine 1.02 ng/dl (0.61-1.60)
--- NOTE | 2023-04-19 03:38 | History & Physical Report ---
Date of Service April 19, 2023 Assessment & Plan (1) TIA (transient ischemic attack): Plan: History CVA as per records ? Aspirin failure ARF Possible syncope rule out orthostasis, cardiac dysfunction, seizures (hx CVA) as differentials hx COPD, stable hypertension, stable hyperlipidemia, statin Rx DM 2 on oral medications, controlled as of recent hemoglobin A1c of 7 last November 2022 chronic back pain chronic anemia, hemoglobin at baseline hx anxiety/mood disorder OBS Medical telemetry Plavix for possible aspirin failure for now MRI/MRA brain, TTE, carotid Dopplers for stroke work-up May need Neurology opinion pending work-up results Check orthostatic vitals, EEG for syncope work-up monitor creatinine response to IVF Hold lisinopril until creatinine back to baseline Basal bolus insulin, ISS BG goal 1 10-1 40, carb count coverage, update hemoglo bin A1c PT OT eval DVT prophylaxis. Heparin subcu Full code Patient requests for his sister to be given periodic updates. Ms. Leeann Shipman, contact #[phone]. Text document was generated using Tynker voice recognition software. It may contain grammatical or spelling errors. Kindly contact undersigned for clarification of any documentation item in question. Admission and Anticipated Discharge Date Admission Date: April 19, 2023 History of Present Illness Chief Complaint: Fall, right-sided weakness, possible syncope Primary Care Provider: Jose Alejandro Krueger MD History obtained from patient and records. Patient is a fair historian. Medical history significant for COPD, hypertension, hyperlipidemia, history CVA, DM 2 on oral medications, GERD, chronic back pain, chronic anemia (baseline hemoglobin 11-12 ), anxiety/mood disorder. Last confinement June 2016 for UTI. Patient slightly not feeling well yesterday afternoon. He got on his scooter to go around his house. Thinks he may have passed out. He woke up on the ground. Denies headache, chest pain, SOB, tongue biting, incontinence. Right side felt weak. Patient able to activate his EMS alert device. Speech may have been slurred as per EMS account. No recent tick bites as per patient. Patient compliant with daily home aspirin although he does not recall having a stroke diagnosis in the past. Patient brought to the ER for evaluation. Right-sided weakness currently much improved. Medical History as above Surgical History : Appendectomy, pressure gastrectomy, cholecystectomy, tonsillectomy, hernia repair, knee surgery Family History : Skin cancer, heart disease, stroke Personal/Social history : Non-smoker, no EtOH intake, disabled Allergies Allergy/AdvReac Type Severity Reaction Status Date / Time iodine AdvReac Intermediate FEELS WARM Verified 04/18/23 18:44 ALL OVER morphine AdvReac Intermediate NAUSEA/VOMI Verified 04/18/23 18:44 TING Penicillins AdvReac Intermediate NAUSEA/VOMI Verified 04/18/23 18:44 TING Home Medications Medication Instructions Recorded Confirmed Type citalopram 40 mg tablet 40 mg PO DAILY 01/31/20 04/18/23 History gabapentin 100 mg capsule 100 mg PO TID 01/31/20 04/18/23 History hydroxyzine HCl 25 mg tablet 25 mg PO BID 01/31/20 04/18/23 History metformin 500 mg tablet 500 mg PO TIDM 01/31/20 04/18/23 History pantoprazole 40 mg tablet,delayed 40 mg PO DAILYBB 01/31/20 04/18/23 History release risperidone 2 mg tablet 2 mg PO HS 01/31/20 04/18/23 History simvastatin 10 mg tablet 10 mg PO HS 01/31/20 04/18/23 History trazodone 50 mg tablet 50 mg PO HS 01/31/20 04/18/23 History albuterol sulfate 90 mcg/actuation 2 puff inhalation Q4H PRN Wheezing 04/18/23 04/18/23 History aerosol inhaler (ProAir HFA) cyanocobalamin (vitamin B-12) 500 500 mcg PO Q OTHER DAY 04/18/23 04/18/23 History mcg tablet (Vitamin B-12) lisinopril 5 mg tablet 5 mg PO QAM 04/18/23 04/18/23 History aspirin 81 mg PO DAILY 04/19/23 04/19/23 History Past Med/Surg History Social History Smoking Status: Never smoker Hx Alcohol Use: No Hx Substance Use: No Preferred Language: Lao Communication Ability: Effective Bull Wheel Worker Required: No Beliefs That Will Affect Care: None Current Living Situation: Alone Other Information That Helps Us Care for You: No Feels Safe at Home: Yes Safety Concerns: Feels Safe At This Time Assistive Devices: None Review of Systems Review of Systems: As per HPI, all other systems reviewed and negative Physical Exam Physical Exam: GENERAL: Comfortable, obese, slightly hard of hearing, no respiratory distress SKIN: Pallor, warm HEENT: Pale palpebral conjunctivae, no ptosis, dry buccal mucosa, nasal cannula in place NECK : Supple, short neck, no tenderness CHEST : CTA, no tenderness HEART : RRR, no obvious murmurs ABDOMEN: Some distention, nontender EXTREMITIES : Minimal LE swelling, no LE tenderness, no other conspicuous deformities noted NEUROLOGIC : Coherent, no facial asymmetry, MMTS BUE 4/5, BLE 3/5 (L>R, chronic as per patient), gait and stance not assessed Results & Data Results & Data Vital Signs (Past 12 Hours) Vital Signs Temp Pulse Pulse Resp BP BP Pulse Ox 04/19/23 01:22 04/19/23 01:22 37.5 C 86 18 128/62 95 04/19/23 00:30 75 12 96 04/19/23 00:30 136/75 04/19/23 00:20 83 18 96 04/19/23 00:00 75 16 97 04/19/23 00:00 123/73 04/18/23 23:40 83 15 96 04/18/23 23:20 76 15 95 04/18/23 23:00 79 15 97 04/18/23 23:00 130/75 04/18/23 22:00 85 18 113/79 97 04/18/23 21:10 86 04/18/23 20:00 75 16 146/79 H 94 04/18/23 18:40 75 14 146/85 H 94 04/18/23 17:30 89 20 119/70 91 04/18/23 17:20 90 04/18/23 17:30 37.7 C H 100 H 16 121/72 91 04/18/23 17:26 106 H O2 Del Method O2 Flow Rate 04/19/23 01:22 Nasal Cannula 2 04/19/23 01:22 Nasal Cannula 2 04/19/23 00:30 04/19/23 00:30 04/19/23 00:20 04/19/23 00:00 04/19/23 00:00 04/18/23 23:40 04/18/23 23:20 04/18/23 23:00 04/18/23 23:00 04/18/23 22:00 Nasal Cannula 2 04/18/23 21:10 04/18/23 20:00 Room Air 04/18/23 18:40 04/18/23 17:30 Room Air 04/18/23 17:20 Room Air 04/18/23 17:30 Room Air 04/18/23 17:26 Laboratory Results Laboratory Results WBC 7.57 K/ul (4.8-10.8) 04/18/23 17:34 RBC 4.02 M/uL (4.70-6.10) L 04/18/23 17:34 Hgb 12.6 g/dl (14.0-18.0) L 04/18/23 17:34 Hct 37.1 % (42.0-52.0) L 04/18/23 17:34 MCV 92.3 fL (80.0-100.0) 04/18/23 17:34 MCH 31.3 pg (25.0-34.0) 04/18/23 17: MCHC 34.0 g/dL (32.0-36.0) 04/18/23 17:34 RDW Std Deviation 41.1 fL (36.4-46.3) 04/18/23 17:34 RDW Coeff of Janel 12.1 % (11.5-14.5) 04/18/23 17:34 Plt Count 201 K/uL (130-400) 04/18/23 17:34 MPV 10.9 fL (9.4-12.4) 04/18/23 17:34 Immature Gran % (Auto) 0.3 % 04/18/23 17:34 Neut % (Auto) 69.1 % 04/18/23 17:34 Lymph % (Auto) 21.1 % 04/18/23 17:34 Early % (Auto) 8.3 % 04/18/23 17:34 Eos % (Auto) 0.8 % 04/18/23 17:34 Baso % (Auto) 0.4 % 04/18/23 17:34 Neut # (Auto) 5.23 K/uL (1.40-6.50) 04/18/23 17:34 Lymph # (Auto) 1.60 K/uL (1.2-3.4) 04/18/23 17:34 Early # (Auto) 0.63 K/uL (0.11-0.59) H 04/18/23 17:34 Eos # (Auto) 0.06 K/uL (0-0.50) 04/18/23 17:34 Baso # (Auto) 0.03 K/uL (0-0.2) 04/18/23 17:34 Immature Gran # (Auto) 0.02 K/uL (0.01-0.20) 04/18/23 17:34 PT 10.3 Seconds (9.0-12.0) 04/18/23 17:34 INR 0.9 (0.9-1.1) 04/18/23 17:34 APTT 24.5 Seconds (21.0-31.0) 04/18/23 17:34 PTT Ratio 0.9 04/18/23 17:34 Sodium 135 mmol/L (136-145) L 04/18/23 17:34 Potassium 4.8 mmol/L (3.5-5.1) 04/18/23 17:34 Chloride 100 mmol/L (98-107) 04/18/23 17:34 Carbon Dioxide 26 mmol/L (21-32) 04/18/23 17:34 Anion Gap 9 (3-11) 04/18/23 17:34 BUN 20 mg/dl (6-23) 04/18/23 17:34 Creatinine 1.61 mg/dl (0.6-1.4) H 04/18/23 17:34 Est Cr Clr Drug Dosing 43.3 ml/min 04/18/23 17:34 Est GFR ( Amer) 48.1 ml/min 04/18/23 17:34 Est GFR (Non-Af Amer) 41.5 ml/min 04/18/23 17:34 BUN/Creatinine Ratio 12.4 (10-20) 04/18/23 17:34 Glucose 175 mg/dl (70-99(Fasting)) H 04/18/23 17:34 POC Glucose 170 mg/dl (70-99) H 04/19/23 01:46 Calcium 9.4 mg/dl (8.6-10.3) 04/18/23 17:34 Magnesium 1.5 mg/dl (1.7-2.4) L 04/18/23 17:34 Total Bilirubin 0.5 mg/dl (0.2-1.0) 04/18/23 17:34 AST 14 U/L (13-39) 04/18/23 17:34 ALT 11 U/L (7-52) 04/18/23 17:34 Alkaline Phosphatase 93 U/L (34-104) 04/18/23 17:34 Total Creatine Kinase 63 U/L (30-223) 04/18/23 17:34 Troponin I High Sens 4.7 pg/ml (0-20) 04/18/23 17:34 Total Protein 7.4 gm/dl (6.0-8.3) 04/18/23 17:34 Albumin 4.4 gm/dl (3.4-5.0) 04/18/23 17:34 Globulin 3.0 gm/dl (2.5-4.0) 04/18/23 17:34 Albumin/Globulin Ratio 1.5 (0.9-2) 04/18/23 17:34 Procalcitonin < 0.05 ng/ml (0-0.5) 04/18/23 17:34 TSH 4.916 uIu/ml (0.300-4.500) H 04/18/23 17:34 Free T4 1.02 ng/dl (0.61-1.60) 04/18/23 17:34 Urine Color Yellow 04/18/23 23:40 Urine Appearance Clear (Clear) 04/18/23 23:40 Urine pH 5.0 (4.5-7.5) 04/18/23 23:40 Ur Specific Lykens 1.013 (1.000-1.030) 04/18/23 23:40 Urine Protein Negative (Negative) 04/18/23 23:40 Urine Glucose (UA) 2+ (Negative) H 04/18/23 23:40 Urine Ketones Negative (Negative) 04/18/23 23:40 Urine Blood Negative (Negative) 04/18/23 23:40 Urine Nitrite Negative (Negative) 04/18/23 23:40 Urine Bilirubin Negative (Negative) 04/18/23 23:40 Urine Urobilinogen Negative (Negative) 04/18/23 23:40 Ur Leukocyte Esterase Negative (Negative) 04/18/23 23:40 Lyme Disease IgG Ab Negative (Negative) 04/18/23 17:34 Lyme Disease IgM Ab Negative (Negative) 04/18/23 17:34 SARS-CoV-2, RNA, NAAT NEGATIVE (NEGATIVE) 04/18/23 21:00 Blood Type O Positive 04/18/23 17:51 Antibody Screen NEGATIVE 04/18/23 17:[address] 04/18/23 17:32 CT head/brain wo con CLINICAL HISTORY: neuro deficit, acute stroke suspected Technique: Contiguous axial CT images of the head were acquired from the base of the skull to the vertex without intravenous contrast administration. Images were viewed in brain, subdural and bone windows. Automated dose lowering techniques and/or adjustment according to patient size were utilized for this exam. Comparison: None available at the time of this dictation. Findings: Areas of decreased attenuation are present in the periventricular and subcortical white matter bilaterally consistent with small vessel ischemic disease. Generalized cerebral atrophy with commensurate enlargement of the ventricles, sulci, and cisterns is also present. There is no acute intracranial hemorrhage or evidence of acute territorial infarction. No shift of the midline structures, mass effect, or extra-axial abnormalities are shown. Atherosclerotic calcifications are present in the intracranial segments of the internal carotid arteries. Imaged portions of the paranasal sinuses and mastoid air cells are clear. The orbits appear normal. There are no acute fractures of the calvaria or scalp swelling. Impression: No acute intracranial hemorrhage, no evidence of acute territorial infarction or other acute intracranial disease process. ACT 112: Negative or not required by law. Electronically signed by: Rickey Montes M.D. 04/18/2023 7:[address] 04/18/23 20:29 Exam(s): CT L SPINE EXAM: CT Lumbar Spine Without Intravenous Contrast CLINICAL HISTORY: fall - back pain. TECHNIQUE: Axial computed tomography images of the lumbar spine without intravenous contrast. Automated exposure control was utilized for the study. A dose lowering technique was utilized adhering to the principles of ALARA. COMPARISON: CT lumbar spine dated 01/31/2020 FINDINGS: Vertebrae: The lumbar vertebral body heights are maintained. No anterolisthesis or retrolisthesis noted. The pedicles, facet joints, spinous processes and transverse processes are intact. Hypertrophic changes involving the facet joints, most notable at L4-5 level. Discs/spinal canal/neural foramina: Similar disc space narrowing with marginal anomaly anterior hypertrophic changes throughout the lumbar spine without appreciable alteration from the previous examination. Stable ankylosis of the sacroiliac joints. Soft tissues: No significant acute traumatic paraspinal soft tissue abnormality identified. IMPRESSION: No acute osseous traumatic injury or significant abnormal alignment involving the lumbar spine. No appreciable alteration from the previous examination with stable appearing degenerative changes noted. Electronically signed by: Fuentes Pulido MD 04/18/23 22:54 PM Diagnostic Findings Chest x-ray as per my interpretation cardiomegaly, atelectasis EKG as per my interpretation : Rate 105, sinus tachycardia, LAD, LAFB, incomplete RBBB, no ischemia Code Status & VTE Plan VTE Prophylaxis Plan VTE Prophylaxis will be ordered: Yes
[2023-04-19] MEDS: PANTOprazole 40 MG TAB PO SCH (05:48)
[2023-04-19] MEDS: HEPARIN SOD 5,000 UNIT/0.5 ML VIAL SQ SCH ×3 (05:48→22:00)
[2023-04-19] MEDS: oxyCODONE HCL IR 5 MG TAB (IMMEDIATE RELEASE) PO PRN ×4 (05:54→23:18)
[2023-04-19 07:48] LABS: Basophils # (auto) 0.02 K/uL (0-0.2); Basophils % (auto) 0.3 %; Eosinophils # (auto) 0.03 K/uL (0-0.50); Eosinophils % (auto) 0.4 %; Hematocrit (blood only) 35.4 % (42.0-52.0); Hemoglobin 11.7 g/dl (14.0-18.0); Immature Granulocytes # (auto) 0.02 K/uL (0.01-0.20); Immature Granulocytes % (auto) 0.3 %; Lymphocytes # (auto) 1.65 K/uL (1.2-3.4); Lymphocytes % (auto) 24.7 %; Mean Corpuscular Hemoglobin 30.7 pg (25.0-34.0); Mean Corpuscular Hgb Conc 33.1 g/dL (32.0-36.0); Mean Corpuscular Volume 92.9 fL (80.0-100.0); Mean Platelet Volume 10.7 fL (9.4-12.4); Monocytes # (auto) 0.57 K/uL (0.11-0.59); Monocytes % (auto) 8.5 %; Neutrophils % (auto) 65.8 %; Platelet Count 189 K/uL (130-400); RDW Coefficient of Variation 12.2 % (11.5-14.5); RDW Standard Deviation 41.7 fL (36.4-46.3); Red Blood Count 3.81 M/uL (4.70-6.10); White Blood Count 6.69 K/ul (4.8-10.8)
[2023-04-19 08:03] LABS: Chol HDL Ratio 2.7 (0-5); Creatinine Clr Calc Pharmacy 52.6 ml/min; Est GFR (African American) 61.7 ml/min; Est GFR (Non-African American) 53.3 ml/min; Potassium 4.8 mmol/L (3.5-5.1)
[2023-04-19] MEDS: GABAPENTIN 100 MG CAP PO SCH ×3 (08:13→22:00)
[2023-04-19] MEDS: CITALOPRAM 40 MG TAB PO SCH (08:13)
[2023-04-19] MEDS: LANTUS PER UNIT CHARGE SQ SCH (08:14)
[2023-04-19 08:45] LABS: Estimated Average Glucose 157 mg/dl; Hemoglobin A1C 7.1 % (4.5-5.6)
--- NOTE | 2023-04-19 08:51 | XRay Report ---
XR chest 1V portable HISTORY: 72 years-old Male fever, renal failure acute fever COMPARISON: Chest CT 01/31/2020 TECHNIQUE: AP view of the chest FINDINGS: Cardiac silhouette is enlarged. Atherosclerosis of the aorta. No pneumothorax, pleural effusion or ov ert pulmonary edema. Mild subsegmental bibasilar atelectasis. Degenerative changes of the shoulders a nd spine. Hiatal hernia with epigastric surgical clips. IMPRESSION: No acute process of the chest. ACT 112: Negative or not required by law. The above report was generated using voice recognition software. It may contain grammatical, syntax o r spelling errors. Electronically signed by: Ankit Melton M.D. 04/19/2023 8:49 AM
--- NOTE | 2023-04-19 10:37 | Electrocardiogram Report ---
Test Reason : Blood Pressure : / mmHG Vent. Rate : 104 BPM Atrial Rate : 104 BPM P-R Int : 164 ms QRS Dur : 084 ms QT Int : 320 ms P-R-T Axes : 025 -02 031 degrees QTc Int : 420 ms Sinus tachycardia Otherwise normal ECG When compared with ECG of 31-JAN-2020 15:00, Vent. rate has increased BY 49 BPM Confirmed by Minh Allen ([id number]) on 04/19/2023 10:37:00 AM Referred By: REFERRED SELF Confirmed By:Minh Allen
--- NOTE | 2023-04-19 12:03 | Ultrasound Report ---
US carotid doppler BI CLINICAL HISTORY: 72 years-old Male with tia. Acute stroke like symptoms COMPARISON: Head CT 04/18/2023, carotid ultrasound 04/09/2013. TECHNIQUE: Multiple real time sonographic images of the carotid bifurcations were obtained assessing mack scale, color Doppler and spectral wave form appearance FINDINGS: RIGHT CAROTID: The peak systolic velocity measured within the right ICA is 103 cm/sec. The end dennison tolic velocity measured 35 cm/sec. The ICA to CCA ratio measured 0.9 which correlates with a stenosi s of 0-50%. Mild atherosclerotic plaque. LEFT CAROTID: The peak systolic velocity measurements in the left ICA is 82 cm/sec. The end diastol ic velocity measured 36 cm/sec. The ICA to CCA ratio measured 0.9 which correlates with a stenosis of 0-50%. Mild to moderate atherosclerotic plaque There is normal antegrade vertebral flow bilaterally. IMPRESSION: 1. No hemodynamically significant stenosis. 2. Normal antegrade vertebral flow bilaterally. ACT 112: Negative or not required by law. The above report was generated using voice recognition software. It may contain grammatical, syntax o r spelling errors. Electronically signed by: Ankit Melton M.D. 04/19/2023 12:01 PM
--- NOTE | 2023-04-19 15:29 | Hospitalist Progress Note ---
Date of Service April 19, 2023 Assessment & Plan (1) Brain TIA: Plan 72-year-old male with PMH of COPD, HTN, HLD, CVA, DM2 on oral meds, GERD, chronic back pain, chronic anemia [baseline hemoglobin 11-12], anxiety/mood disorder presented to the ED 04/18 after possible syncope. Is being managed for the following: Possible syncope: Possible TIA vs Stroke: Patient reports falling on the ground (on his back) while he tried to get on his scooter, reports having some nausea/feeling of vomiting/lightheadedness prior to fall, not sure if he actually lost consciousness but reports he was able to activate his life alert as soon as he fell. Also reports he felt weak on the right side. Admitting labs fairly WNL except for elevated creatinine/ERIC and hypomagnesemia. UA WNL, Lyme screen negative, COVID-negative. CT head/LS-spine CT/CXR/carotid Doppler study: No acute findings Admitting EKG with sinus tach at 104. Echo with EF of 60 to 65%, LV systolic function and RV systolic function normal. No significant valvular pathology. Differential could be orthostatic hypotension, cardiac dysfunction, seizures, TIA Orthostatic vitals negative. MRI brain and MR angio head pending. Continue with telemetry monitoring. EEG pending. Neuro consult. PT/OT. Plavix added. c/w aspirin. Rt sided weakness already resolved on today's exam. Acute kidney injury: Elevated creatinine at 1.61, status post IV fluids, resolved. Abdomen ischemia: Replaced, resolved. Other chronic medical conditions: Resume home meds as able COPD, stable hypertension, stable hyperlipidemia, statin Rx DM 2 on oral medications, controlled as of recent hemoglobin A1c of 7 last November 2022 chronic back pain chronic anemia, hemoglobin at baseline anxiety/mood disorder DVT prophylaxis. Heparin subcu Full code Patient's sister Ms. Leeann Shipman, contact #[phone]. Admission and Anticipated Discharge Date Admission Date: April 19, 2023 Subjective Patient seen and examined at bedside as a follow-up of syncope. Patient was lying in bed, on 2 L nasal cannula oxygen, NAD, patient's sister at bedside, did not appreciate any motor weakness in neurological exam, denies any new acute event overnight, reports eating okay and moving bowels okay, denies headache or fever chills chest pain or belly pain Physical Exam Physical Exam: GENERAL: Alert and oriented x3. NAD, on 2L NC O2 HEENT: No pallor, no icterus. Pupils equal, round and reactive to light. Oral mucosa moist. NECK: No JVD, no neck masses. HEART: S1 and S2 heard. Regular rate and rhythm. No murmur, no gallop. RESPIRATORY SYSTEM: Normal AP diameter. No accessory muscle use. No wheezing, no crackles. ABDOMEN: Soft, bowel sounds present, nontender, no distention. CENTRAL NERVOUS SYSTEM: No facial droop. Speech is clear. Obeys simple commands. Moves extremities. EXTREMITIES: trace ble edema, no erythema seen. Results & Data Results & Data Vital Signs (Past 12 Hours) Vital Signs Temp Pulse Pulse Resp BP Pulse Ox O2 Del Method 04/19/23 12:20 36.6 C 95 H 16 107/70 95 Nasal Cannula 04/19/23 08:19 36.9 C 76 16 128/86 93 Nasal Cannula 04/19/23 07:21 63 04/19/23 04:20 36.7 C 71 20 134/91 97 Nasal Cannula O2 Flow Rate 04/19/23 12:20 2 04/19/23 08:19 2 04/19/23 07:21 04/19/23 04:20 2
[2023-04-19] MEDS: risperiDONE 2 MG TABLET PO SCH (22:00)
[2023-04-19] MEDS: SIMVASTATIN 10 MG TAB PO SCH (22:00)
[2023-04-19] MEDS: traZODone HCL 50 MG TAB PO SCH (22:03)
[2023-04-20] MEDS: ACETAMINOPHEN 325 MG TAB PO PRN (01:25)
[2023-04-20] MEDS: PANTOprazole 40 MG TAB PO SCH (05:12)
[2023-04-20] MEDS: HEPARIN SOD 5,000 UNIT/0.5 ML VIAL SQ SCH ×3 (05:12→20:19)
--- NOTE | 2023-04-20 07:03 | Magnetic Resonance Report ---
MRI OF THE BRAIN WITHOUT CONTRAST CLINICAL HISTORY: Transient ischemic attack. COMPARISON STUDY: MRI of the brain April 09, [address] April 18, 2023. TECHNIQUE: Utilizing a 1.5 Tanja magnet and dedicated coil, multiplanar, multiecho imaging of the bra in was performed without IV contrast. FINDINGS: There are no foci of restricted diffusion to suggest acute infarct. No acute intracranial h emorrhage, midline shift or mass effect is present. There is mild atrophy. Mild white matter T2 hyper intense foci suggest small vessel disease. Basal cisterns are patent. There are no extra-axial collec tions. No intracranial masses identified on this unenhanced exam. Calvarial signal is within normal l imits. There is no evidence for sinusitis. IMPRESSION: No acute intracranial findings. ACT 112: Negative or not required by law. Electronically signed by: Rigoberto Menchaca M.D. 04/20/2023 7:00 AM
--- NOTE | 2023-04-20 07:04 | Magnetic Resonance Report ---
MRA OF THE INTRACRANIAL CIRCULATION WITHOUT CONTRAST CLINICAL HISTORY: Transient ischemic attack. COMPARISON STUDY: MRA of the head April 09, 2013. TECHNIQUE: Utilizing a 1.5 Tanja magnet and 3-D [id number] technique, unenhanced MRA of the intra cranial circulation was obtained. FINDINGS: The bilateral M1, M2, A1 and A2 segments are patent. There is no intracranial aneurysm. No central vessel occlusion is noted. A large right posterior communicating artery is present. There is persistence of the left posterior cerebral artery. Posterior circulation is intact. There is be en no significant change since MRA of April 09, 2013. IMPRESSION: Unremarkable MRA of the head. No central vessel occlusion. No intracranial aneurysm. ACT 112: Negative or not required by law. Electronically signed by: Rigoberto Menchaca M.D. 04/20/2023 7:03 AM
[2023-04-20] MEDS: GABAPENTIN 100 MG CAP PO SCH ×3 (07:17→20:19)
[2023-04-20] MEDS: CITALOPRAM 40 MG TAB PO SCH (07:17)
[2023-04-20] MEDS: ASPIRIN 81 MG ECTAB PO SCH (07:18)
[2023-04-20 08:03] LABS: Hematocrit (blood only) 33.6 % (42.0-52.0); Hemoglobin 11.2 g/dl (14.0-18.0); Mean Corpuscular Hemoglobin 31.5 pg (25.0-34.0); Mean Corpuscular Hgb Conc 33.3 g/dL (32.0-36.0); Mean Corpuscular Volume 94.6 fL (80.0-100.0); Mean Platelet Volume 10.8 fL (9.4-12.4); Platelet Count 180 K/uL (130-400); RDW Coefficient of Variation 11.9 % (11.5-14.5); Red Blood Count 3.55 M/uL (4.70-6.10)
[2023-04-20] MEDS: LANTUS PER UNIT CHARGE SQ SCH (08:04)
[2023-04-20] MEDS: INSULIN ASPART PER UNIT CHARGE SC SCH ×4 (08:04→21:43)
[2023-04-20 08:20] LABS: Calcium 9.2 mg/dl (8.6-10.3); Creatinine Clr Calc Pharmacy 54.3 ml/min; Est GFR (African American) 64.1 ml/min; Est GFR (Non-African American) 55.3 ml/min; Magnesium 1.9 mg/dl (1.7-2.4); Phosphorus 3.3 mg/dl (2.5-4.9); Potassium 4.9 mmol/L (3.5-5.1)
--- NOTE | 2023-04-20 08:55 | Neurology Consultation ---
Date of Consultation April 20, 2023 Assessment & Plan (1) Parkinsonism: With generalized weakness and slurred speech after syncope, I am less concerned for a TIA. The most notable feature on his exam is parkinsonism. Suspect this may be secondary to Risperdal and requires further evaluation as an outpatient. Suspect that the parkinsonism is leading to autonomic dysfunction and may have contributed to the syncopal episode. The patient is already on aspirin and statin and I would not otherwise recommend continuing the plavix for 21 days given the overall low suspicion for a cerebrovascular event. -- Can be discharged on aspirin monotherapy 81mg daily -- Outpatient neuro referral for parkinsonism, suspect secondary to Risperdal -- Please contact us with any further questions Telehealth Consultation Telehealth Information Telehealth Information: I performed this visit using a real-time telehealth connection between my location and the patients location ([facility]). After connecting through interactive tele-video, patient was identified by name and date of and/or wristband check.Patient (or authorized healthcare outside energy sales representatives) was informed that this was a telemedicine visit and it was being conducted confidentially over secure lines. My office door was closed and no one else was present in the room with me.Patient (or authorized healthcare outside energy sales representatives) provided consent to proceed with the visit, expressed an understanding of privacy and security of the telemedicine visit, and gave permission to have a hospital outside energy sales representatives in the room in order to assist with the visit and to conduct portions of the visit, as needed. I informed the patient (or authorized healthcare outside energy sales representatives) that I reviewed their record and presented the opportunity for them to ask any questions regarding the visit today. The patient agreed to participate. History of Present Illness Reason for Consultation: Possible TIA Requesting Physician: Dr. Soliman Attending Physician: Paige Soliman MD History of Present Illness Davin Fernández is a 72 yo M presenting after a syncopal episode at home where he fell. He reports being unable to get up from the ground after the fall due to generalized weakness. He denies any focality. He also reports having slurred speech at the time which has since resolved. Other than back pain he feels back to baseline. He notes that overall his movements have been slower recently but can not specify a timeframe. Regarding this episode, this was the first time he has had syncope and does not think there was any warning or prodrome prior. Allergies Allergy/AdvReac Type Severity Reaction Status Date / Time iodine AdvReac Intermediate FEELS WARM Verified 04/18/23 18:44 ALL OVER morphine AdvReac Intermediate NAUSEA/VOMI Verified 04/18/23 18:44 TING Penicillins AdvReac Intermediate NAUSEA/VOMI Verified 04/18/23 18:44 TING Home Medications Medication Instructions Recorded Confirmed Type citalopram 40 mg tablet 40 mg PO DAILY 01/31/20 04/18/23 History gabapentin 100 mg capsule 100 mg PO TID 01/31/20 04/18/23 History hydroxyzine HCl 25 mg tablet 25 mg PO BID 01/31/20 04/18/23 History metformin 500 mg tablet 500 mg PO TIDM 01/31/20 04/18/23 History pantoprazole 40 mg tablet,delayed 40 mg PO DAILYBB 01/31/20 04/18/23 History release risperidone 2 mg tablet 2 mg PO HS 01/31/20 04/18/23 History simvastatin 10 mg tablet 10 mg PO HS 01/31/20 04/18/23 History trazodone 50 mg tablet 50 mg PO HS 01/31/20 04/18/23 History albuterol sulfate 90 mcg/actuation 2 puff inhalation Q4H PRN Wheezing 04/18/23 04/18/23 History aerosol inhaler (ProAir HFA) cyanocobalamin (vitamin B-12) 500 500 mcg PO Q OTHER DAY 04/18/23 04/18/23 History mcg tablet (Vitamin B-12) lisinopril 5 mg tablet 5 mg PO QAM 04/18/23 04/18/23 History aspirin 81 mg PO DAILY 04/19/23 04/19/23 History Patient History Social History Smoking Status: Never smoker Hx Alcohol Use: No Hx Substance Use: No Preferred Language: Tamazight Communication Ability: Effective Gem Carver Required: No Beliefs That Will Affect Care: None Current Living Situation: Alone Other Information That Helps Us Care for You: No Feels Safe at Home: Yes Safety Concerns: Feels Safe At This Time Assistive Devices: None Review of Systems +generalized weakness, back pain Physical Exam Neurological Examination: Mental Status: Awake and alert. Oriented to person, place, and time. Fluent with hypophonia and slow responses. Comprehension intact, able to follow commands. Some difficulty with naming objects. Affect appropriate. Cranial Nerves: II: Reads NIHSS cards, vail grossly intact. III/IV/: Versions intact without nystagmus, no gaze preference. VII: Facial expression symmetric with hypomimia VIII: Hearing intact to voice XII: Tongue midline Motor: Strength was symmetric and antigravity. Pronator drift was absent. There were no abnormal movements but significant bradykinesia. Reflexes: Unable to assess over telemedicine Results & Data Vital Signs (Past 12 Hours) Vital Signs Temp Pulse Pulse Resp BP Pulse Ox O2 Del Method 04/20/23 07:42 37.4 C 81 16 137/86 93 Room Air 04/19/23 23:59 82 04/20/23 02:49 36.9 C 88 18 124/77 96 Nasal Cannula 04/19/23 23:00 37.5 C 86 19 129/81 95 Nasal Cannula O2 Flow Rate 04/20/23 07:42 04/19/23 23:59 04/20/23 02:49 2 04/19/23 23:00 2 Laboratory Results Abnormal lab results 04/19/23 04/19/23 04/20/23 Range/Units 11:35 20:08 06:49 RBC 3.55 L (4.70-6.10) M/uL Hgb 11.2 L (14.0-18.0) g/dl Hct 33.6 L (42.0-52.0) % Glucose (70-99(Fasting)) mg/dl POC Glucose 143 H 130 H (70-99) mg/dl 04/20/23 04/20/23 Range/Units 06:49 07:31 RBC (4.70-6.10) M/uL Hgb (14.0-18.0) g/dl Hct (42.0-52.0) % Glucose 140 H (70-99(Fasting)) mg/dl POC Glucose 150 H (70-99) mg/dl Diagnostic Findings MRI brain - Unremarkable for acute stroke MRA - Unremarkable CUS - no significant carotid stenosis
[2023-04-20] MEDS ORDERED: CLOPIDOGREL BISULFATE 75 MG TAB PO SCH (09:00)
--- NOTE | 2023-04-20 13:18 | Electroencephalogram ---
EEG Procedure Note Date of Service April 20, 2023 Start / End Times Start Time: 05:51 End Time: 06:11 Referring Physician Luis Alfredo Hart History A 72-year-old male with syncopal episode. EEG performed for evaluation epileptiform activity. Home Medication List Medication Instructions Recorded Confirmed Type citalopram 40 mg tablet 40 mg PO DAILY 01/31/20 04/18/23 History gabapentin 100 mg capsule 100 mg PO TID 01/31/20 04/18/23 History hydroxyzine HCl 25 mg tablet 25 mg PO BID 01/31/20 04/18/23 History metformin 500 mg tablet 500 mg PO TIDM 01/31/20 04/18/23 History pantoprazole 40 mg tablet,delayed 40 mg PO DAILYBB 01/31/20 04/18/23 History release risperidone 2 mg tablet 2 mg PO HS 01/31/20 04/18/23 History simvastatin 10 mg tablet 10 mg PO HS 01/31/20 04/18/23 History trazodone 50 mg tablet 50 mg PO HS 01/31/20 04/18/23 History albuterol sulfate 90 mcg/actuation 2 puff inhalation Q4H PRN Wheezing 04/18/23 04/18/23 History aerosol inhaler (ProAir HFA) cyanocobalamin (vitamin B-12) 500 500 mcg PO Q OTHER DAY 04/18/23 04/18/23 History mcg tablet (Vitamin B-12) lisinopril 5 mg tablet 5 mg PO QAM 04/18/23 04/18/23 History aspirin 81 mg PO DAILY 04/19/23 04/19/23 History Inpatient Medication List Acetaminophen (Acetaminophen 325 Mg Tab) 650 mg PO Q4H PRN PRN Reason: Pain or Fever Stop: 05/19/23 01:21 Last Admin: 04/20/23 01:25 Dose: 650 mg Documented By: Admin: 04/19/23 01:54 Dose: 650 mg Documented By: QG Aspirin (Aspirin 81 Mg Ectab) [facility] [place] [place] Stop: 05/20/23 08:59 Last Admin: 04/20/23 07:18 Dose: 81 mg Documented By: ZS Citalopram Hydrobromide (Citalopram 40 Mg Tab) 40 mg PO DAILY [facility] Stop: 05/19/23 08:59 Last Admin: 04/20/23 07:17 Dose: 40 mg Documented By: Admin: 04/19/23 08:13 Dose: 40 mg Documented By: PALLAVI Gabapentin (Gabapentin 100 Mg Cap) 100 mg PO TID [facility] Stop: 05/19/23 08:59 Last Admin: 04/20/23 07:17 Dose: 100 mg Documented By: Admin: 04/19/23 22:00 Dose: 100 mg Documented By: Admin: 04/19/23 13:44 Dose: 100 mg Documented By: Admin: 04/19/23 08:13 Dose: 100 mg Documented By: PALLAVI Heparin Sodium (Porcine) (Heparin Sod 5,000 Unit/0.5 Ml Vial) 5,000 units SQ Q8 FAVIOLA Stop: 05/19/23 05:59 Last Admin: 04/20/23 05:12 Dose: 5,000 units Documented By: Admin: 04/19/23 22:00 Dose: 5,000 units Documented By: Admin: 04/19/23 13:44 Dose: 5,000 units Documented By: Admin: 04/19/23 05:48 Dose: 5,000 units Documented By: MICKY Insulin Aspart (Insulin Aspart Per Unit Charge) 0 units SC ACHS [facility] Stop: 05/19/23 01:21 Last Admin: 04/20/23 11:52 Dose: 3 units Documented By: PALLAVI Co-signed By: [id number] Admin: 04/20/23 08:04 Dose: 4 units Documented By: PALLAVI Co-signed By: [id number] Admin: 04/19/23 21:57 Dose: Not Given Documented By: Admin: 04/19/23 16:56 Dose: 1 units Documented By: PALLAVI Co-signed By: DELANEY Admin: 04/19/23 11:55 Dose: 4 units Documented By: PALLAVI Co-signed By: DELANEY Admin: 04/19/23 08:14 Dose: 2 units Documented By: PALLAVI Co-signed By: DELANEY Admin: 04/19/23 01:52 Dose: 2 units Documented By: MICKY Co-signed By: LEONARD Insulin Glargine (Lantus Per Unit Charge) 5 units SQ DAILY [facility] Stop: 05/19/23 08:59 Last Admin: 04/20/23 08:04 Dose: 5 units Documented By: PALLAVI Co-signed By: [id number] Admin: 04/19/23 08:14 Dose: 5 units Documented By: PALLAVI Co-signed By: DELANEY Oxycodone HCl (Oxycodone Hcl Ir 5 Mg Tab (Immediate Release)) 5 mg PO Q4H PRN PRN Reason: Pain Stop: 05/03/23 01:21 Last Admin: 04/19/23 23:18 Dose: 5 mg Documented By: Admin: 04/19/23 19:14 Dose: 5 mg Documented By: Admin: 04/19/23 11:19 Dose: 5 mg Documented By: Admin: 04/19/23 05:54 Dose: 5 mg Documented By: SonidoG Pantoprazole Sodium ([facility]ole 40 Mg Tab) [facility] Stop: 05/19/23 06:29 Last Admin: 04/20/23 05:12 Dose: 40 mg Documented By: Admin: 04/19/23 05:48 Dose: 40 mg Documented By: SonidoG Risperidone (Risperidone 2 Mg Tablet) 2 mg PO [facility] Stop: 05/19/23 20:59 Last Admin: 04/19/23 22:00 Dose: 2 mg Documented By: LEONARD Simvastatin (Simvastatin 10 Mg Tab) 10 mg PO [facility] Stop: 05/19/23 20:59 Last Admin: 04/19/23 22:00 Dose: 10 mg Documented By: LEONARD Trazodone HCl (Trazodone Hcl 50 Mg Tab) 50 mg PO [facility] Stop: 05/19/23 20:59 Last Admin: 04/19/23 22:03 Dose: 50 mg Documented By: LEONARD Discontinued Medications Aspirin (Aspirin 81 Mg Chew) 324 mg PO NOW STA Stop: 04/19/23 00:24 Last Admin: 04/19/23 00:37 Dose: 324 mg Documented By: GENNARO Clopidogrel Bisulfate (Clopidogrel Bisulfate 75 Mg Tab) 75 mg PO NOW ONE Stop: 04/19/23 00:24 Last Admin: 04/19/23 00:37 Dose: 75 mg Documented By: GENNARO Clopidogrel Bisulfate (Clopidogrel Bisulfate 75 Mg Tab) 75 mg PO [facility] Stop: 05/20/23 08:59 Last Admin: 04/20/23 07:17 Dose: 75 mg Documented By: PALLAVI Fentanyl Citrate (Fentanyl Citrate Pf 100 Mcg/2 Ml Vial) 50 mcg IV NOW STA Stop: 04/18/23 20:19 Last Admin: 04/18/23 20:36 Dose: 50 mcg Documented By: JAC Acetaminophen (Ofirmev) 1,000 mg in 100 mls @ 400 mls/hr IV NOW STA Stop: 04/18/23 18:17 Last Infusion: 04/18/23 18:55 Dose: 0 mls/hr Documented By: Admin: 04/18/23 18:10 Dose: 400 mls/hr Documented By: MARIA M Sodium Chloride (Nss) 500 mls @ 999 mls/hr IV .Q31M ONE Stop: 04/18/23 18:55 Last Infusion: 04/18/23 18:55 Dose: 0 mls/hr Documented By: Admin: 04/18/23 18:25 Dose: 999 mls/hr Documented By: MARIA M Magnesium Sulfate/Dextrose (Magnesium Sulfate / D5w) 1 gm in 100 mls @ 100 mls/hr IV NOW STA Stop: 04/18/23 19:24 Last Infusion: 04/18/23 19:38 Dose: 0 mls/hr Documented By: Admin: 04/18/23 18:38 Dose: 100 mls/hr Documented By: MARIA M Magnesium Sulfate/Dextrose (Magnesium Sulfate / D5w) 1 gm in 100 mls @ 50 mls/hr IV ONE ONE Stop: 04/19/23 01:19 Last Infusion: 04/19/23 01:42 Dose: 0 mls/hr Documented By: Admin: 04/19/23 00:20 Dose: 50 mls/hr Documented By: GENNARO Sodium Chloride (Nss 1000ml) 1,000 mls @ 75 mls/hr IV .[id number] ONE Stop: 04/19/23 13:08 Last Infusion: 04/19/23 13:17 Dose: 0 mls/hr Documented By: Admin: 04/19/23 01:46 Dose: 75 mls/hr Documented By: SonidoG Ondansetron HCl (Ondansetron Inj 2 Mg/Ml 2 Ml Vial) 4 mg IV NOW STA Stop: 04/18/23 20:19 Last Admin: 04/18/23 20:36 Dose: 4 mg Documented By: JAC Description This is a 21 electrode EEG with a single channel dedicated to limited EKG. The electrodes were placed in accordance with the International 10-20 system. REPORT: At the onset of the EEG the patient is awake. The background appears symmetric. There is a normal anterior to posterior gradient. The posterior dominant rhythm is 9 Hz. There is low-amplitude fast activity seen in the bilateral frontal head regions. Drowsiness is characterized by increased theta activity, reduced blink rate, and decreased myogenic artifact. Photic stimulation does not induce any abnormalities. No stage 2 sleep transients are seen. Interpretation IMPRESSION: This is a normal awake and drowsy routine EEG. There is no evidence of epileptiform activity.
--- NOTE | 2023-04-20 14:56 | Discharge Summary ---
Date of Service April 20, 2023 Admission HPI Per Admitting Provider History obtained from patient and records. Patient is a fair historian. Medical history significant for COPD, hypertension, hyperlipidemia, history CVA, DM 2 on oral medications, GERD, chronic back pain, chronic anemia (baseline hemoglobin 11-12 ), anxiety/mood disorder. Last confinement June 2016 for UTI. Patient slightly not feeling well yesterday afternoon. He got on his scooter to go around his house. Thinks he may have passed out. He woke up on the ground. Denies headache, chest pain, SOB, tongue biting, incontinence. Right side felt weak. Patient able to activate his EMS alert device. Speech may have been slurred as per EMS account. No recent tick bites as per patient. Patient compliant with daily home aspirin although he does not recall having a stroke diagnosis in the past. Patient brought to the ER for evaluation. Right-sided weakness currently much improved. Medical History as above Surgical History : Appendectomy, pressure gastrectomy, cholecystectomy, tonsillectomy, hernia repair, knee surgery Family History : Skin cancer, heart disease, stroke Personal/Social history : Non-smoker, no EtOH intake, disabled Admission Exam Per Admitting Provider GENERAL: Comfortable, obese, slightly hard of hearing, no respiratory distress SKIN: Pallor, warm HEENT: Pale palpebral conjunctivae, no ptosis, dry buccal mucosa, nasal cannula in place NECK : Supple, short neck, no tenderness CHEST : CTA, no tenderness HEART : RRR, no obvious murmurs ABDOMEN: Some distention, nontender EXTREMITIES : Minimal LE swelling, no LE tenderness, no other conspicuous deformities noted NEUROLOGIC : Coherent, no facial asymmetry, MMTS BUE 4/5, BLE 3/5 (L>R, chronic as per patient), gait and stance not assessed Principal Diagnosis Possible syncope secondary to parkinsonism Discharge Exam GENERAL: Alert and oriented x3. NAD, on 2L NC O2 HEENT: No pallor, no icterus. Pupils equal, round and reactive to light. Oral mucosa moist. NECK: No JVD, no neck masses. HEART: S1 and S2 heard. Regular rate and rhythm. No murmur, no gallop. RESPIRATORY SYSTEM: Normal AP diameter. No accessory muscle use. No wheezing, no crackles. ABDOMEN: Soft, bowel sounds present, nontender, no distention. CENTRAL NERVOUS SYSTEM: No facial droop. Speech is clear. Obeys simple commands. Moves extremities. EXTREMITIES: trace ble edema, no erythema seen. Discharge Data Allergies Allergy/AdvReac Type Severity Reaction Status Date / Time iodine AdvReac Intermediate FEELS WARM Verified 04/18/23 18:44 ALL OVER morphine AdvReac Intermediate NAUSEA/VOMI Verified 04/18/23 18:44 TING Penicillins AdvReac Intermediate NAUSEA/VOMI Verified 04/18/23 18:44 TING Consultations 04/18/23 22:59 ED Decision to Admit Stat 04/19/23 15:26 Consult Neurology Routine Ordered Studies 04/18/23 17:32 CT head/brain wo con Stat 04/18/23 20:29 CT lumbar spine wo con Stat 04/19/23 01:22 MR angio head wo con Urgent MR brain wo con Urgent US carotid doppler BI Routine Hospital Course (1) Brain TIA: Plan 72-year-old male with PMH of COPD, HTN, HLD, CVA, DM2 on oral meds, GERD, ch ronic back pain, chronic anemia [baseline hemoglobin 11-12], anxiety/mood disorder presented to the ED 04/18 after possible syncope. Is being managed for the following: Possible syncope likely 2/2 parkinsonism Possible TIA: less likely Patient reports falling on the ground (on his back) while he tried to get on his scooter, reports having some nausea/feeling of vomiting/lightheadedness prior to fall, not sure if he actually lost consciousness but reports he was able to activate his life alert as soon as he fell. Also reports he felt weak on the right side. Admitting labs fairly WNL except for elevated creatinine/ERIC and hypomagnesemia. UA WNL, Lyme screen negative, COVID-negative. CT head/LS-spine CT/CXR/carotid Doppler study/MRA head/MRI brain/EEG: No acute findings Admitting EKG with sinus tach at 104. Echo with EF of 60 to 65%, LV systolic function and RV systolic function normal. No significant valvular pathology. Differential could be orthostatic hypotension, cardiac dysfunction, seizures, TIA Orthostatic vitals negative. Neuro evaled, needs follow up as OP for parkinsonism eval. PT/OT, to rehab No weakness appreciated at bedside exam, pt feels better. Acute kidney injury: Elevated creatinine at 1.61, status post IV fluids, resolved. Abdomen ischemia: Replaced, resolved. Other chronic medical conditions: Resume home meds as able COPD, stable hypertension, stable hyperlipidemia, statin Rx DM 2 on oral medications, controlled as of recent hemoglobin A1c of 7 last November 2022 chronic back pain chronic anemia, hemoglobin at baseline anxiety/mood disorder DVT prophylaxis. Heparin subcu Full code Patient's sister Ms. Leeann Shipman, contact #[phone]. Patient being discharged to [facility] with the following instructions at the point of discharge: Follow-up with your primary care physician within a week time and likely you will need labs CBC/CMP/magnesium/phosphorus. Follow-up with your neurology in 2 to 3 weeks time upon discharge, you will need further evaluation regarding your parkinsonism. Take your medications as prescribed. Home Health Attestation I certify that this patient is under my care and that I, or a physicians assistant professor surgical technology working with me, had a face to-face encounter that meets the [facility] [id number] encounter requirements with this patient. The encounter with the patient was in whole, or in part, for the following medical condition, which is the primary reason for home health care (list medical condition): I certify that, based on my findings, the following services are medically necessary home health services: My clinical findings support the need for the above services because: Further, I certify that my clinical findings support that this patient is homebound (i.e. absences from home require considerable and taxing effort and are for medical reasons or taoist services or infrequently or of short duration when for other reasons) because: Certification for Home Health Services: Based on the above findings, I certify that this patient is confined to the home and needs intermittent intermediate care, physical therapy and/or speech therapy or continues to need occupational therapy. The patient is under my care, and I have initiated the establishment of the plan of care. This patient will be followed by a physician who will periodically review the plan of care. Total Time Total Time Spent Total Time Spent (In Minutes): 45 Discharge Plan Discharge Items Patient Disposition: Transfer Inpatient Rehab Fac Reason For Visit: TIA Discharge Diagnosis: Possible syncope secondary to parkinsonism Activity: Resume your previous activity Non-emergency contact: Primary Care Provider Call non-emergency contact if: you have any medication questions, your symptoms worsen and your temperature is above 101 Follow-up/Referrals: Jose Alejandro Krueger MD [Primary Care Provider] - Diet: Carb Consistent or DM2 and Heart Healthy Diet Texture: Mechanical soft (ground) Addtl Attending Provider Instructions: Follow-up with your primary care physician within a week time and likely you will need labs CBC/CMP/magnesium/phosphorus. Follow-up with your neurology in 2 to 3 weeks time upon discharge, you will need further evaluation regarding your parkinsonism. Take your medications as prescribed. Pending Studies at Discharge: No Stand-Alone Forms: [facility] Skilled Items Patient informed of condition?: Yes DNR: No Discharge Level of Care: Acute rehab Communicable Disease: No Discharge Prognosis: Stable Lines: None Urinary Catheter: No Medications and DC Order Prescriptions: Continued metformin 500 mg tablet 500 mg PO TIDM citalopram 40 mg tablet 40 mg PO DAILY trazodone 50 mg tablet 50 mg PO HS simvastatin 10 mg tablet 10 mg PO HS risperidone 2 mg tablet 2 mg PO HS pantoprazole 40 mg tablet,delayed release (DR/EC) 40 mg PO DAILYBB Rx Instructions: TAKE THIS MEDICATION ONCE DAILY 30 MINUTES BEFORE FIRST MEAL OF THE DAY hydroxyzine HCl 25 mg tablet 25 mg PO BID gabapentin 100 mg capsule 100 mg PO TID cyanocobalamin (vitamin B-12) [Vitamin B-12] 500 mcg Tablet 500 mcg PO Q OTHER DAY lisinopril 5 mg tablet 5 mg PO QAM albuterol sulfate [ProAir HFA] 90 mcg/actuation Hfa Aerosol Inhaler 2 puff INHALATION Q4H PRN (Reason: Wheezing) aspirin 81 mg PO DAILY Discharge Orders: Discharge Order (Routine); Ordered 04/20/23 Ordered By: Paige Parekh/Other Patient Handouts: High Blood Sugar (Hyperglycemia), Hypoglycemia (Low Blood Sugar), Managing Type 2 Diabetes Admission Data Admit Date/Time: 04/19/23 00:27 Attending Provider: Paige Soliman Admit Provider: Luis Alfredo Hart Primary Care Provider: Jose Alejandro Krueger Other Providers: Luis Alfredo Hart ; [facility]
[2023-04-20] MEDS ORDERED: FUROSEMIDE INJ 20 MG/2 ML VIAL IV ONE (16:08)
--- NOTE | 2023-04-20 16:14 | Hospitalist Progress Note ---
Date of Service April 20, 2023 Assessment & Plan (1) Brain TIA: Plan 72-year-old male with PMH of COPD, HTN, HLD, CVA, DM2 on oral meds, GERD, chronic back pain, chronic anemia [baseline hemoglobin 11-12], anxiety/mood disorder presented to the ED 04/18 after possible syncope. Is being managed for the following: Possible syncope likely 2/2 parkinsonism Possible TIA: less likely Patient reports falling on the ground (on his back) while he tried to get on his scooter, reports having some nausea/feeling of vomiting/lightheadedness prior to fall, not sure if he actually lost consciousness but reports he was able to activate his life alert as soon as he fell. Also reports he felt weak on the right side. Admitting labs fairly WNL except for elevated creatinine/ERIC and hypomagnesemia. UA WNL, Lyme screen negative, COVID-negative. CT head/LS-spine CT/CXR/carotid Doppler study/MRA head/MRI brain/EEG: No acute findings Admitting EKG with sinus tach at 104. Echo with EF of 60 to 65%, LV systolic function and RV systolic function normal. No significant valvular pathology. Differential could be orthostatic hypotension, cardiac dysfunction, seizures, TIA Orthostatic vitals negative. Neuro evaled, needs follow up as OP for parkinsonism eval. PT/OT, to rehab No weakness appreciated at bedside exam, pt feels better. Acute kidney injury: Elevated creatinine at 1.61, status post IV fluids, resolved. Abdomen ischemia: Replaced, resolved. Hypoxia: has been requiring 2L NC O2, today while trying to wean down, his O2 need actually jumped to 5L. WBC, procal and admitting CXR wnl, will get repeat CXR/trop. ECHO as above. Will keep him overnight and get labs in AM. Other chronic medical conditions: Resume home meds as able COPD, stable hypertension, stable hyperlipidemia, statin Rx DM 2 on oral medications, controlled as of recent hemoglobin A1c of 7 last November 2022 chronic back pain chronic anemia, hemoglobin at baseline anxiety/mood disorder DVT prophylaxis. Heparin subcu Full code Patient's sister Ms. Leeann Shipman, contact #[phone]. Patient being discharged to [facility] with the following instructions at the point of discharge: Follow-up with your primary care physician within a week time and likely you will need labs CBC/CMP/magnesium/phosphorus. Follow-up with your neurology in 2 to 3 weeks time upon discharge, you will need further evaluation regarding your parkinsonism. Take your medications as prescribed. Admission and Anticipated Discharge Date Admission Date: April 19, 2023 Subjective Patient seen and examined at bedside as a follow-up of syncope. Patient was lying in bed, on 2 L nasal cannula oxygen, NAD, patient's sister at bedside, did not appreciate any motor weakness in neurological exam, denies any new acute event overnight, reports eating okay and moving bowels okay, denies headache or fever chills chest pain or belly pain. Pt was supposed to be discharged on 2L today, but while trying to wean down on O2, while on RA, he dropped SpO2 to high 70s to low 80s, and was put back on 2L with no result then uptitrated to 5L, finally he was up to 93%. Will get CXR, ECHO done this admission looks good, will get trop and ekg. Physical Exam Physical Exam: GENERAL: Alert and oriented x3. NAD, on 2L NC O2 HEENT: No pallor, no icterus. Pupils equal, round and reactive to light. Oral mucosa moist. NECK: No JVD, no neck masses. HEART: S1 and S2 heard. Regular rate and rhythm. No murmur, no gallop. RESPIRATORY SYSTEM: Normal AP diameter. No accessory muscle use. No wheezing, no crackles. ABDOMEN: Soft, bowel sounds present, nontender, no distention. CENTRAL NERVOUS SYSTEM: No facial droop. Speech is clear. Obeys simple commands. Moves extremities. EXTREMITIES: trace ble edema, no erythema seen. Results & Data Results & Data Vital Signs (Past 12 Hours) Vital Signs Temp Pulse Pulse Resp BP Pulse Ox O2 Del Method 04/20/23 15:49 37.2 C 86 16 130/75 95 04/20/23 15:20 82 04/20/23 14:32 37.2 C 86 16 130/75 95 Nasal Cannula 04/20/23 08:53 82 04/20/23 08:17 Nasal Cannula 04/20/23 07:42 37.4 C 81 16 137/86 93 Room Air O2 Flow Rate 04/20/23 15:49 04/20/23 15:20 04/20/23 14:32 2 04/20/23 08:53 05/30/23 08:17 2 04/20/23 07:42
[2023-04-20 19:24] LABS: Adenovirus PCR Not Detected (NotDetected); Bordetella parapertussis PCR Not Detected (NotDetected); Bordetella pertussis PCR Not Detected (NotDetected); Chlamydia pneumoniae PCR Not Detected (NotDetected); Coronavirus 229E PCR Not Detected (NotDetected); Coronavirus CoV-2 (COVID19)PCR Not Detected (NotDetected); Coronavirus HKU1 PCR Not Detected (NotDetected); Coronavirus NL63 PCR Not Detected (NotDetected); Coronavirus OC43PCR Not Detected (NotDetected); Human Metapneumovirus PCR Not Detected (NotDetected); Influenza A PCR Not Detected (NotDetected); Influenza B PCR Not Detected (NotDetected); Mycoplasma pneumoniae PCR Not Detected (NotDetected); Parainfluenza Virus 1 PCR Not Detected (NotDetected); Parainfluenza Virus 2 PCR Not Detected (NotDetected); Parainfluenza Virus 3 PCR Not Detected (NotDetected); Parainfluenza Virus 4 PCR Not Detected (NotDetected); Respiratory Syncytial VirusPCR Not Detected (NotDetected); Rhinovirus/Enterovirus PCR Not Detected (NotDetected)
[2023-04-20] MEDS: risperiDONE 2 MG TABLET PO SCH (20:19)
[2023-04-20] MEDS: traZODone HCL 50 MG TAB PO SCH (20:19)
[2023-04-20] MEDS: SIMVASTATIN 10 MG TAB PO SCH (20:19)
[2023-04-20] MEDS: DOXYCYCLINE HYCLATE 100 MG CAP PO SCH (20:53)
--- NOTE | 2023-04-20 22:24 | XRay Report ---
TWO VIEW CHEST CLINICAL HISTORY: Hypoxia.. FINDINGS: AP and lateral chest radiographs are compared to study dated 04/18/2023 and correlated with chest CT dated 01/31/2020. The heart is enlarged noting atherosclerotic calcification of the thoracic aorta. The pulmonary vasculature is noncongested. Chronic interstitial thickening similar to previous . There is bibasilar scarring/atelectasis. No airspace consolidation or pleural effusion is identifie d. There is no pneumothorax. The skeletal structures are osteopenic. The bony thorax appears intact. Surgical clips are noted in the upper abdomen. Cholecystectomy clips are seen in the right upper quad rant. IMPRESSION: Cardiomegaly with no active disease in the chest. ACT 112: Negative or not required by law. Electronically signed by: Will Terrazas M.D. 04/20/2023 10:22 PM
[2023-04-21] MEDS: PANTOprazole 40 MG TAB PO SCH (05:49)
[2023-04-21] MEDS: HEPARIN SOD 5,000 UNIT/0.5 ML VIAL SQ SCH ×3 (05:49→21:31)
--- NOTE | 2023-04-21 08:07 | Electrocardiogram Report ---
Test Reason : Blood Pressure : / mmHG Vent. Rate : 091 BPM Atrial Rate : 091 BPM P-R Int : 172 ms QRS Dur : 098 ms QT Int : 344 ms P-R-T Axes : 036 000 044 degrees QTc Int : 423 ms Normal sinus rhythm Incomplete right bundle branch block Normal ECG When compared with ECG of 18-APR-2023 17:24, No significant change was found Confirmed by Maninder Carrillo ([id number]) on 04/21/2023 8:07:32 AM Referred By: REFERRED SELF Confirmed By:Maninder Carrillo
[2023-04-21] MEDS: DOXYCYCLINE HYCLATE 100 MG CAP PO SCH ×2 (09:32→21:30)
[2023-04-21] MEDS: GABAPENTIN 100 MG CAP PO SCH ×3 (09:33→21:30)
[2023-04-21] MEDS: CITALOPRAM 40 MG TAB PO SCH (09:33)
[2023-04-21] MEDS: ASPIRIN 81 MG ECTAB PO SCH (09:33)
[2023-04-21] MEDS: INSULIN ASPART PER UNIT CHARGE SC SCH ×4 (09:46→21:29)
[2023-04-21 09:47] LABS: Hematocrit (blood only) 35.9 % (42.0-52.0); Hemoglobin 11.7 g/dl (14.0-18.0); Mean Corpuscular Hemoglobin 31.1 pg (25.0-34.0); Mean Corpuscular Hgb Conc 32.6 g/dL (32.0-36.0); Mean Corpuscular Volume 95.5 fL (80.0-100.0); Mean Platelet Volume 10.6 fL (9.4-12.4); Platelet Count 182 K/uL (130-400); RDW Coefficient of Variation 11.8 % (11.5-14.5); RDW Standard Deviation 41.1 fL (36.4-46.3); Red Blood Count 3.76 M/uL (4.70-6.10); White Blood Count 8.77 K/ul (4.8-10.8)
[2023-04-21] MEDS: LANTUS PER UNIT CHARGE SQ SCH (09:51)
[2023-04-21 10:52] LABS: BUN Creatinine Ratio 21.6 (10-20); Calcium 9.7 mg/dl (8.6-10.3); Creatinine Clr Calc Pharmacy 56.6 ml/min; Est GFR (African American) 71.5 ml/min; Est GFR (Non-African American) 61.7 ml/min; Magnesium 1.6 mg/dl (1.7-2.4); Phosphorus 3.5 mg/dl (2.5-4.9); Potassium 4.5 mmol/L (3.5-5.1)
[2023-04-21 11:02] LABS: D Dimer 1030 ug/L FEU (0-500)
--- NOTE | 2023-04-21 12:31 | Communication Note ---
Date of Service: April 21, 2023 Spoke with patient's sister Peggy who is also his caregiver/primary contact and updated about patient's condition. Inquired about allergies to iodine in the past. She states that she is not aware of the allergy to iodine and also states that she mentioned to her PCP office that it can be taken out from allergy list but wondered why is it still there. Also confirmed with the patient if he had any allergies or anaphylactic reaction in the past, patient denied any allergies to the iodine not even warmth. Since his D-dimer is elevated and his oxygen re quirement has been high with heart rate in high 90s to low 100, I feel it is very important to rule out blood clot. I will get US Doppler BLE first and if it is negative then I will use diphenhydramine followed by CTA chest to rule out PE. Patient's sister and patient are aware of this and the risks involved due to" concern of allergies to iodine in the past" if they were true and they agree with the plan of care.
--- NOTE | 2023-04-21 13:04 | Pulmonary Consultation ---
Date of Consultation April 21, 2023 Assessment & Plan (1) Acute respiratory failure with hypoxia: (2) Exertional shortness of breath: (3) Morbid obesity: (4) Parkinsonism: Plan Chest x-ray 04/20/2023 personally reviewed: PA/lateral view, good inspiratory effort, bilateral costophrenic and cardiophrenic angles are clean, no clear lung infiltrate appreciated 2D echo 04/19/2023: EF 60-65%, RV systolic function and size is normal, small apical anterior pericardial effusion, grade 1 diastolic dysfunction -- Acute hypoxic respiratory failure D-dimer 1030 Respiratory bio fire negative for everything on 04/20/2023 Procalcitonin negative TSH 4.9 -- Lifetime non-smoker He does carry the diagnosis of COPD I am unsure if she has COPD, outpatient PFT --Obesity with probable ERNESTO Trial of CPAP Outpatient polysomnography --Patient does seem to have parkinsonian features He is on risperidone which can give Parkinson's like features Plan: Given the persistent hypoxia with no significant abnormality on the chest x-ray and elevated D-dimer I will order a CTA chest to rule out PE Continue with O2 supplementation to keep oxygen saturation between 88-92% Case was discussed with Dr. Soliman Please note the above document was generated using voice recognition software. It may contain grammatical, syntax or spelling errors.Any formal questions or concerns about the content, text or information contained within the body of this dictation should be directly addressed to the provider for clarification. History of Present Illness Attending Physician: Paige Soliman MD History of Present Illness 72-year-old male with me to the hospital for syncope Past medical history: COPD, hypertension, diabetes, GERD, anxiety/depression Pulmonary consulted for hypoxic respiratory failure Patient's sister and [id number] were in the room at the time of examination. He was saturating 97-98% on 3 and half liters. I went down to 2 L He was not in any respiratory distress. He was yawning. He is slow to respond but answers all the questions appropriately. At the time of examination patient says that he is feeling better compared to when he came to the hospital Shortness of breath is improved. Does complain of cough which she is able to bring up without any issues Denies any fever or chills No diarrhea, no dysuria. Denies any difficulty swallowing but I do think there is a probability of aspiration. No headache, no blurry vision Social history: Lifetime non-smoker, no alcohol, denies any illicit drug use. Used to work in paper mill and garbage disposal No history of lung cancer in the family Allergies Allergy/AdvReac Type Severity Reaction Status Date / Time iodine AdvReac Intermediate FEELS WARM Verified 04/18/23 18:44 ALL OVER morphine AdvReac Intermediate NAUSEA/VOMI Verified 04/18/23 18:44 TING Penicillins AdvReac Intermediate NAUSEA/VOMI Verified 04/18/23 18:44 TING Home Medications Medication Instructions Recorded Confirmed Type citalopram 40 mg tablet 40 mg PO DAILY 01/31/20 04/18/23 History gabapentin 100 mg capsule 100 mg PO TID 01/31/20 04/18/23 History hydroxyzine HCl 25 mg tablet 25 mg PO BID 01/31/20 04/18/23 History metformin 500 mg tablet 500 mg PO TIDM 01/31/20 04/18/23 History pantoprazole 40 mg tablet,delayed 40 mg PO DAILYBB 01/31/20 04/18/23 History release risperidone 2 mg tablet 2 mg PO HS 01/31/20 04/18/23 History simvastatin 10 mg tablet 10 mg PO HS 01/31/20 04/18/23 History trazodone 50 mg tablet 50 mg PO HS 01/31/20 04/18/23 History albuterol sulfate 90 mcg/actuation 2 puff inhalation Q4H PRN Wheezing 04/18/23 04/18/23 History aerosol inhaler (ProAir HFA) cyanocobalamin (vitamin B-12) 500 500 mcg PO Q OTHER DAY 04/18/23 04/18/23 History mcg tablet (Vitamin B-12) lisinopril 5 mg tablet 5 mg PO QAM 04/18/23 04/18/23 History aspirin 81 mg PO DAILY 04/19/23 04/19/23 History Patient History Social History Smoking Status: Never smoker Hx Alcohol Use: No Hx Substance Use: No Preferred Language: Finnish Communication Ability: Effective Embryology Professor Required: No Beliefs That Will Affect Care: None Current Living Situation: Alone Other Information That Helps Us Care for You: No Feels Safe at Home: Yes Safety Concerns: Feels Safe At This Time Assistive Devices: None Review of Systems Review of Systems: All systems reviewed & are unremarkable except as noted in HPI & below Physical Exam Physical Exam: Constitutional: No acute distress HEENT: EOMI, PERRLA Respiratory system: Decreased air entry bilaterally, no wheeze, no rhonchi, mild crackles bilaterally CVS: S1-S2 positive, no murmurs or gallops Abdomen: Soft, nontender, nondistended, positive bowel sounds x4, obese Extremities: +2 pulses bilaterally radialis/ dorsalis pedis, no cyanosis, no edema Neuro: Awake alert oriented x3 Psych: Flat mood and affect G/U: No Das Skin: no rashes, warm and dry Lymphatic: no cervical or axillary lymphadenopathy Results & Data Results & Data Vital Signs (Past 12 Hours) Vital Signs Temp Pulse Pulse Resp BP Pulse Ox O2 Del Method 04/21/23 11:43 37.2 C 97 H 20 126/79 98 Nasal Cannula 04/21/23 07:48 101 H 04/21/23 07:20 36.4 C L 101 H 18 130/78 95 Nasal Cannula 04/21/23 04:00 37.1 C 89 19 140/66 95 Nasal Cannula O2 Flow Rate 04/21/23 11:43 5 04/21/23 07:48 04/21/23 07:20 4 04/21/23 04:00 4 Laboratory Results 04/21/23 08:43 04/21/23 08:43 PG Care Time/CCT Total # of Minutes Spent Total Time Spent with Patient: Total time spent is greater than 50% in coordination of care (as documented) at patient's floor/unit and/or counseling patient: Coding Level of Care Code 87923 INT INP/OBS CARE 3/75MIN Diagnoses Acute respiratory failure with hypoxia J96.01 Exertional shortness of breath R06.02 Morbid obesity E66.01 Parkinsonism G20
--- NOTE | 2023-04-21 14:40 | Ultrasound Report ---
ULTRASOUND BILATERAL LOWER EXTREMITY VENOUS CLINICAL HISTORY: Elevated d-dimer. COMPARISON STUDY: Left lower extremity venous ultrasound dated 11/18/2015. TECHNIQUE: Real-time, grayscale, and color Doppler sonography of the deep veins of the right and left lower extremity was performed from the inguinal crease to the calf. Compression and augmentation wer e utilized. FINDINGS: There is no sonographic evidence of deep venous thrombosis identified in the right or left lower extremity. The common femoral, superficial femoral, and popliteal veins are patent and normally compressible bilaterally. The greater saphenous vein and the profunda femoris vein at the junction w ith the common femoral vein are clear in both legs. The visualized calf veins are patent bilaterally. IMPRESSION: There is no sonographic evidence of deep venous thrombosis identified in the right or lef t lower extremity. ACT 112: Negative or not required by law. Electronically signed by: Will Terrazas M.D. 04/21/2023 2:39 PM
[2023-04-21] MEDS ORDERED: diphenhydrAMINE 50 MG/ML VIAL IV ONE (16:48)
--- NOTE | 2023-04-21 17:22 | Hospitalist Progress Note ---
Date of Service April 21, 2023 Assessment & Plan (1) Brain TIA: Plan 72-year-old male with PMH of COPD, HTN, HLD, CVA, DM2 on oral meds, GERD, chronic back pain, chronic anemia [baseline hemoglobin 11-12], anxiety/mood disorder presented to the ED 04/18 after possible syncope. Is being managed for the following: Possible syncope likely 2/2 parkinsonism Possible TIA: less likely Patient reports falling on the ground (on his back) while he tried to get on his scooter, reports having some nausea/feeling of vomiting/lightheadedness prior to fall, not sure if he actually lost consciousness but reports he was able to activate his life alert as soon as he fell. Also reports he felt weak on the right side. Admitting labs fairly WNL except for elevated creatinine/ERIC and hypomagnesemia. UA WNL, Lyme screen negative, COVID-negative. CT head/LS-spine CT/CXR/carotid Doppler study/MRA head/MRI brain/EEG: No acute findings Admitting EKG with sinus tach at 104. Echo with EF of 60 to 65%, LV systolic function and RV systolic function normal. No significant valvular pathology. Differential could be orthostatic hypotension, cardiac dysfunction, seizures, TIA Orthostatic vitals negative. Neuro evaled, needs follow up as OP for parkinsonism eval. PT/OT, to rehab No weakness appreciated at bedside exam, pt feels better. Acute kidney injury: Elevated creatinine at 1.61, status post IV fluids, resolved. Abdomen ischemia: Replaced, resolved. Acute hypoxic respiratory failure: has been requiring 2L NC O2, on 04/20 evening while trying to wean down, his O2 need actually jumped to 5L. WBC, procal and admitting CXR wnl, troponin WNL, repeat CXR WNL. ECHO as above. US venous Doppler negative for DVT, D-dimer elevated. Pulm consulted. CT a chest sent, follow-up on the chest CT. Of note, discussed with patient himself and patient's sister in detail regarding history of allergies to iodine in the past, they are not aware of it but they are aware that it has been mentioned in the documents/charts ever since but not sure how it came in there. Additionally they are not aware of any anaphylactic reaction to anything in the past. They wanted me to proceed with contrast studies if needed. Will use diphenhydramine prior to CTA chest. Other chronic medical conditions: Resume home meds as able COPD, stable hypertension, stable hyperlipidemia, statin Rx DM 2 on oral medications, controlled as of recent hemoglobin A1c of 7 last November 2022 chronic back pain chronic anemia, hemoglobin at baseline anxiety/mood disorder DVT prophylaxis. Heparin subcu Full code Patient's sister Ms. Leeann Shipman, contact #[phone]. Admission and Anticipated Discharge Date Admission Date: April 20, 2023 Subjective Patient seen and examined at bedside as a follow-up of syncope. Patient was sitting up in chair, on 4 L nasal cannula oxygen, NAD, did not appreciate any motor weakness in neurological exam, denies any new acute event overnight, reports eating okay and moving bowels okay, denies headache or fever chills chest pain or belly pain. Reports cough with brownish sputum. Physical Exam Physical Exam: GENERAL: Alert and oriented x3. NAD, on 4 L NC O2 HEENT: No pallor, no icterus. Pupils equal, round and reactive to light. Oral mucosa moist. NECK: No JVD, no neck masses. HEART: S1 and S2 heard. Regular rate and rhythm. No murmur, no gallop. RESPIRATORY SYSTEM: Normal AP diameter. No accessory muscle use. No wheezing, bibasal crackles. ABDOMEN: Soft, bowel sounds present, nontender, no distention. CENTRAL NERVOUS SYSTEM: No facial droop. Speech is clear. Obeys simple commands. Moves extremities. EXTREMITIES: trace ble edema, no erythema seen. Results & Data Results & Data Vital Signs (Past 12 Hours) Vital Signs Temp Pulse Pulse Resp BP Pulse Ox O2 Del Method 04/21/23 16:20 37.3 C 93 H 20 132/78 95 Nasal Cannula 04/21/23 11:43 37.2 C 97 H 20 126/79 98 Nasal Cannula 04/21/23 07:48 101 H 04/21/23 07:20 36.4 C L 101 H 18 130/78 95 Nasal Cannula O2 Flow Rate 04/21/23 16:20 2 04/21/23 11:43 5 04/21/23 07:48 04/21/23 07:20 4
[2023-04-21] MEDS ORDERED: OPTIRAY 320 500ml IV ONE (17:31)
--- NOTE | 2023-04-21 18:02 | CT Scan Report ---
CHEST CTA for PULMONARY ARTERIES CT DOSE: 963.19 mGy.cm HISTORY: Shortness of breath. TECHNIQUE: Multiaxial CT images of the chest were performed following the intravenous administration of contrast to evaluate the pulmonary arteries. Maximal intensity projection images were also obtaine d. A dose lowering technique was utilized adhering to the principles of ALARA. COMPARISON STUDY: Chest CT 01/31/2020. FINDINGS: Limited views the upper abdomen demonstrate a normal spleen and right adrenal gland. The le ft adrenal gland is not well visualized. Prior cholecystectomy. There are small peripheral/capsular c alcifications again noted within the liver. There is a small moderate hiatus hernia with multiple adj acent surgical clips. No pleural or pericardial effusions. The heart remains mildly enlarged. Subcent imeter left thyroid nodules do not meet CT criteria for follow-up. No mediastinal or hilar lymphadeno darlene. Normal caliber thoracic aorta with no evidence for a dissection. No filling defects within the pulmonary arteries to suggest a pulmonary embolus. No acute fractures identified. No pneumothorax. T he central airways are patent. There are patchy and linear densities within the bilateral lower lobes most pronounced at the bases. There are also groundglass densities within the right upper lobe poste riorly. This could represent atelectasis/dependent change or a pneumonitis. There are low lung volume s. IMPRESSION: 1. No evidence for a pulmonary embolus. 2. Mild cardiomegaly. 3. Small moderate hiatus hernia with surrounding postoperative changes. 4. There are patchy and linear densities within the bilateral lower lobes most pronounced at the base s. There are also groundglass densities within the right upper lobe posteriorly. This could represent atelectasis/dependent change or a pneumonitis. ACT 112: Negative or not required by law. Electronically signed by: Pedrito Mitchell M.D. 04/21/2023 5:59 PM
[2023-04-21] MEDS: ACETAMINOPHEN 325 MG TAB PO PRN (19:41)
[2023-04-21] MEDS: MAGNESIUM OXIDE 400 MG TAB PO SCH (21:30)
[2023-04-21] MEDS: risperiDONE 2 MG TABLET PO SCH (21:30)
[2023-04-21] MEDS: SIMVASTATIN 10 MG TAB PO SCH (21:31)
[2023-04-21] MEDS: traZODone HCL 50 MG TAB PO SCH (21:36)
[2023-04-22] MEDS: PANTOprazole 40 MG TAB PO SCH (05:44)
[2023-04-22] MEDS: HEPARIN SOD 5,000 UNIT/0.5 ML VIAL SQ SCH (05:44)
[2023-04-22 06:19] LABS: Hematocrit (blood only) 34.8 % (42.0-52.0); Hemoglobin 11.8 g/dl (14.0-18.0); Mean Corpuscular Hemoglobin 31.4 pg (25.0-34.0); Mean Corpuscular Hgb Conc 33.9 g/dL (32.0-36.0); Mean Corpuscular Volume 92.6 fL (80.0-100.0); Mean Platelet Volume 10.3 fL (9.4-12.4); Platelet Count 186 K/uL (130-400); RDW Coefficient of Variation 11.5 % (11.5-14.5); RDW Standard Deviation 39.2 fL (36.4-46.3); Red Blood Count 3.76 M/uL (4.70-6.10); White Blood Count 7.18 K/ul (4.8-10.8)
[2023-04-22 06:27] LABS: BUN Creatinine Ratio 23.1 (10-20); Calcium 9.8 mg/dl (8.6-10.3); Creatinine Clr Calc Pharmacy 60.8 ml/min; Est GFR (Non-African American) 67.3 ml/min; Magnesium 1.8 mg/dl (1.7-2.4); Phosphorus 3.5 mg/dl (2.5-4.9); Potassium 4.3 mmol/L (3.5-5.1)
[2023-04-22 06:31] LABS: Base Excess ABG 12.8 mEq/L (-9-1.8); HCO3 ABG 40 mmol/L (19-24); Oxygen Saturation ABG 96.4 % (90-95); PCO2 ABG 60 mmHg (35-46); PO2 ABG 77 mmHg (80-95); pH ABG 7.43 (7.35-7.45)
[2023-04-22 06:32] LABS: Allen Test POS (Pos)
--- NOTE | 2023-04-22 07:41 | Pulmonology Progress Note ---
Date of Service April 22, 2023 Assessment & Plan (1) Acute respiratory failure with hypoxia: (2) Exertional shortness of breath: (3) Morbid obesity: (4) Parkinsonism: Plan CT chest 04/21/2023 personally reviewed: Patchy groundglass opacities appreciated on the right side, bilateral dependent lower atelectasis Dilated upper esophagus Moderate hiatal hernia No pulmonary emboli No significant mediastinal lymphadenopathy 2D echo 04/19/2023: EF 60-65%, RV systolic function and size is normal, small apical anterior pericardial effusion, grade 1 diastolic dysfunction -- Acute hypoxic respiratory failure D-dimer 1030 Respiratory bio fire negative for everything on 04/20/2023 Procalcitonin negative CTA negative for PE Doppler bilateral lower extremity negative TSH 4.9 -- Lifetime non-smoker He does carry the diagnosis of COPD I am unsure if she has COPD, outpatient PFT --Obesity with probable ERNESTO Trial of CPAP Outpatient polysomnography --Patient does seem to have parkinsonian features He is on risperidone which can give Parkinson's like features Plan: Complete the course of atypical antibiotics for total of 7 days Incentive spirometer be beneficial Outpatient polysomnography Continue with O2 supplementation to keep oxygen saturation between 88-92% Case was discussed with Dr. Soliman Please note the above document was generated using voice recognition software. It may contain grammatical, syntax or spelling errors.Any formal questions or concerns about the content, text or information contained within the body of this dictation should be directly addressed to the provider for clarification. Admission and Anticipated Discharge Date Admission Date: April 20, 2023 Subjective Patient seen and examined at bedside. No acute distress, no adverse events overnight It was saturating 92-93% on 2 L nasal cannula at rest Denied any headache, no nausea, no vomiting Overall he stated that he is feeling well No headache, no blurry vision Fair appetite Review of Systems Review of Systems: All systems reviewed & are unremarkable except as noted in Subjective Physical Exam Physical Exam: Constitutional: No acute distress HEENT: EOMI, PERRLA Respiratory system: Decreased air entry bilaterally, no wheeze, no rhonchi, positive crackles bilateral lower lobes CVS: S1-S2 positive, no murmurs or gallops Abdomen: Soft, nontender, nondistended, positive bowel sounds x4, obese Extremities: +2 pulses bilaterally radialis/ dorsalis pedis, no cyanosis, no edema Neuro: Awake alert oriented x3 Psych: Flat mood and affect G/U: No Das Skin: no rashes, warm and dry Lymphatic: no cervical or axillary lymphadenopathy Results & Data Results & Data Vital Signs (Past 12 Hours) Vital Signs Temp Pulse Pulse Resp BP Pulse Ox O2 Del Method 04/22/23 07:03 82 04/22/23 04:00 37.0 C 77 20 142/80 H 96 Nasal Cannula 04/22/23 00:00 36.6 C 72 20 119/75 94 Nasal Cannula 04/21/23 23:38 81 04/21/23 22:20 Nasal Cannula 04/21/23 19:56 37.2 C 85 20 120/81 95 Nasal Cannula O2 Flow Rate 04/22/23 07:03 04/22/23 04:00 1 04/22/23 00:00 2 04/21/23 23:38 04/21/23 22:20 2 04/21/23 19:56 2 Laboratory Results 04/22/23 05:41 04/22/23 05:41 PG Care Time/CCT Total # of Minutes Spent Total Time Spent with Patient: Total time spent is greater than 50% in coordination of care (as documented) at patient's floor/unit and/or counseling patient: Coding Level of Care Code 46281 SUB INP/OBS CARE 2/35MIN Diagnoses Acute respiratory failure with hypoxia J96.01 Exertional shortness of breath R06.02 Morbid obesity E66.01 Parkinsonism G20
[2023-04-22] MEDS: ASPIRIN 81 MG ECTAB PO SCH (09:06)
[2023-04-22] MEDS: LANTUS PER UNIT CHARGE SQ SCH (09:06)
[2023-04-22] MEDS: INSULIN ASPART PER UNIT CHARGE SC SCH ×2 (09:06→12:22)
[2023-04-22] MEDS: GABAPENTIN 100 MG CAP PO SCH (09:07)
[2023-04-22] MEDS: DOXYCYCLINE HYCLATE 100 MG CAP PO SCH (09:07)
[2023-04-22] MEDS: CITALOPRAM 40 MG TAB PO SCH (09:07)
[2023-04-22] MEDS: MAGNESIUM OXIDE 400 MG TAB PO SCH (09:07)
--- NOTE | 2023-04-22 13:25 | Discharge Summary ---
Date of Service April 22, 2023 Admission HPI Per Admitting Provider History obtained from patient and records. Patient is a fair historian. Medical history significant for COPD, hypertension, hyperlipidemia, history CVA, DM 2 on oral medications, GERD, chronic back pain, chronic anemia (baseline hemoglobin 11-12 ), anxiety/mood disorder. Last confinement June 2016 for UTI. Patient slightly not feeling well yesterday afternoon. He got on his scooter to go around his house. Thinks he may have passed out. He woke up on the ground. Denies headache, chest pain, SOB, tongue biting, incontinence. Right side felt weak. Patient able to activate his EMS alert device. Speech may have been slurred as per EMS account. No recent tick bites as per patient. Patient compliant with daily home aspirin although he does not recall having a stroke diagnosis in the past. Patient brought to the ER for evaluation. Right-sided weakness currently much improved. Medical History as above Surgical History : Appendectomy, pressure gastrectomy, cholecystectomy, tonsillectomy, hernia repair, knee surgery Family History : Skin cancer, heart disease, stroke Personal/Social history : Non-smoker, no EtOH intake, disabled Admission Exam Per Admitting Provider GENERAL: Comfortable, obese, slightly hard of hearing, no respiratory distress SKIN: Pallor, warm HEENT: Pale palpebral conjunctivae, no ptosis, dry buccal mucosa, nasal cannula in place NECK : Supple, short neck, no tenderness CHEST : CTA, no tenderness HEART : RRR, no obvious murmurs ABDOMEN: Some distention, nontender EXTREMITIES : Minimal LE swelling, no LE tenderness, no other conspicuous deformities noted NEUROLOGIC : Coherent, no facial asymmetry, MMTS BUE 4/5, BLE 3/5 (L>R, chronic as per patient), gait and stance not assessed Principal Diagnosis Possible syncope secondary to parkinsonism Acute hypoxic respiratory failure Possible atypical pneumonia Discharge Exam GENERAL: Alert and oriented x3. NAD, on 2 L NC O2 HEENT: No pallor, no icterus. Pupils equal, round and reactive to light. Oral mucosa moist. NECK: No JVD, no neck masses. HEART: S1 and S2 heard. Regular rate and rhythm. No murmur, no gallop. RESPIRATORY SYSTEM: Normal AP diameter. No accessory muscle use. No wheezing, bibasal crackles. ABDOMEN: Soft, bowel sounds present, nontender, no distention. CENTRAL NERVOUS SYSTEM: No facial droop. Speech is clear. Obeys simple commands. Moves extremities. EXTREMITIES: trace ble edema, no erythema seen. Discharge Data Allergies Allergy/AdvReac Type Severity Reaction Status Date / Time iodine AdvReac Intermediate FEELS WARM Verified 04/18/23 18:44 ALL OVER morphine AdvReac Intermediate NAUSEA/VOMI Verified 04/18/23 18:44 TING Penicillins AdvReac Intermediate NAUSEA/VOMI Verified 04/18/23 18:44 TING Consultations 04/18/23 22:59 ED Decision to Admit Stat 04/19/23 15:26 Consult Neurology Routine 04/21/23 10:30 Consult Pulmonology Routine Ordered Studies 04/18/23 17:32 CT head/brain wo con Stat 04/18/23 20:29 CT lumbar spine wo con Stat 04/19/23 01:22 MR angio head wo con Urgent MR brain wo con Urgent US carotid doppler BI Routine 04/21/23 12:31 US venous doppler LE BI Urgent 04/21/23 16:17 CT angio chest PE protocol Stat Hospital Course (1) Brain TIA: Plan 72-year-old male with PMH of COPD, HTN, HLD, CVA, DM2 on oral meds, GERD, chronic back pain, chronic anemia [baseline hemoglobin 11-12], anxiety/mood disorder presented to the ED 04/18 after possible syncope. He was managed for the following: Possible syncope likely 2/2 parkinsonism Possible TIA: less likely Patient reports falling on the ground (on his back) while he tried to get on his scooter, reports having some nausea/feeling of vomiting/lightheadedness prior to fall, not sure if he actually lost consciousness but reports he was able to activate his life alert as soon as he fell. Also reports he felt weak on the right side. Admitting labs fairly WNL except for elevated creatinine/ERIC and hypomagnesemia. UA WNL, Lyme screen negative, COVID-negative. CT head/LS-spine CT/CXR/carotid Doppler study/MRA head/MRI brain/EEG: No acute findings Admitting EKG with sinus tach at 104. Echo with EF of 60 to 65%, LV systolic function and RV systolic function normal. No significant valvular pathology. Differential could be orthostatic hypotension, cardiac dysfunction, seizures, TIA Orthostatic vitals negative. Neuro evaled, needs follow up as OP for parkinsonism eval. PT/OT, to rehab No weakness appreciated at bedside exam, pt feels better. Acute kidney injury: Elevated creatinine at 1.61, status post IV fluids, resolved. Abdomen ischemia: Replaced, resolved. Acute hypoxic respiratory failure: has been requiring 2L NC O2, on 04/20 evening while trying to wean down, his O2 need actually jumped to 5L. WBC, procal and admitting CXR wnl, troponin WNL, repeat CXR WNL. ECHO as above. US venous Doppler negative for DVT, D-dimer elevated. Pulm consulted. CTA Chest neg for PE. Of note, discussed with patient himself and patient's sister in detail regarding history of allergies to iodine in the past, they are not aware of it but they are aware that it has been mentioned in the documents/charts ever since but not sure how it came in there. Additionally they are not aware of any anaphylactic reaction to anything in the past. They wanted me to proceed with contrast studies if needed. Used diphenhydramine prior to CTA chest. Pt is getting doxy for coverage for likely atypical pna. pt reports feeling better with decreasing cough and improving sputum production which was there earlier per pt. pt reports improving appetite and feels fine to leave hospital today. d/w pulm, discharging on doxy to complete the course. Other chronic medical conditions: Resume home meds as able COPD, stable hypertension, stable hyperlipidemia, statin Rx DM 2 on oral medications, controlled as of recent hemoglobin A1c of 7 last November 2022 chronic back pain chronic anemia, hemoglobin at baseline anxiety/mood disorder DVT prophylaxis. Heparin subcu Full code Patient's sister Ms. Leeann Shipman, contact #[phone]. Patient being discharged to [facility] with following instruction at the point of discharge: Follow-up with your primary care physician within a week time and likely you will need labs CBC/CMP/magnesium/phosphorus. Follow-up with your neurology in 2 to 3 weeks time upon discharge, you will need further evaluation regarding your parkinsonism. You are being discharged on antibiotic for concern of atypical pneumonia, complete the course as prescribed. Take your medications as prescribed. [facility] Attestation I certify that this patient is under my care and that I, or a physicians construction administrative assistant working with me, had a face to-face encounter that meets the [facility] [id number] encounter requirements with this patient. The encounter with the patient was in whole, or in part, for the following medical condition, which is the primary reason for home health care (list medical condition): I certify that, based on my findings, the following services are medically necessary home health services: My clinical findings support the need for the above services because: Further, I certify that my clinical findings support that this patient is homebound (i.e. absences from home require considerable and taxing effort and are for medical reasons or buddhist services or infrequently or of short duration when for other reasons) because: Certification for Home Health Services: Based on the above findings, I certify that this patient is confined to the home and needs intermittent penitentiary care, physical therapy and/or speech therapy or continues to need occupational therapy. The patient is under my care, and I have initiated the establishment of the plan of care. This patient will be followed by a physician who will periodically review the plan of care. Total Time Total Time Spent Total Time Spent (In Minutes): 45 Discharge Plan Discharge Items Patient Disposition: Transfer Inpatient Rehab Fac Reason For Visit: TIA Discharge Diagnosis: Possible syncope secondary to parkinsonism Acute hypoxic respiratory failure Possible atypical pneumonia Activity: Resume your previous activity Non-emergency contact: Primary Care Provider Call non-emergency contact if: you have any medication questions, your symptoms worsen and your temperature is above 101 Follow-up/Referrals: Jose Alejandro Krueger MD [Primary Care Provider] - Diet: Carb Consistent or DM2 and Heart Healthy Diet Texture: Mechanical soft (ground) Addtl Attending Provider Instructions: Follow-up with your primary care physician within a week time and likely you will need labs CBC/CMP/magnesium/phosphorus. Follow-up with your neurology in 2 to 3 weeks time upon discharge, you will need further evaluation regarding your parkinsonism. You are being discharged on antibiotic for concern of atypical pneumonia, complete the course as prescribed. Take your medications as prescribed. Pending Studies at Discharge: No Stand-Alone Forms: My [facility] Skilled Items Patient informed of condition?: Yes DNR: No Discharge Level of Care: Acute rehab Communicable Disease: No Discharge Prognosis: Stable Lines: None Urinary Catheter: No Medications and DC Order Prescriptions: New doxycycline hyclate 100 mg Capsule 100 mg PO BID 5 Days Qty: 10 0RF magnesium oxide 400 mg (241.3 mg magnesium) Tablet 400 mg PO DAILY Qty: 30 0RF Continued metformin 500 mg tablet 500 mg PO TIDM citalopram 40 mg tablet 40 mg PO DAILY trazodone 50 mg tablet 50 mg PO HS simvastatin 10 mg tablet 10 mg PO HS risperidone 2 mg tablet 2 mg PO HS pantoprazole 40 mg tablet,delayed release (DR/EC) 40 mg PO DAILYBB Rx Instructions: TAKE THIS MEDICATION ONCE DAILY 30 MINUTES BEFORE FIRST MEAL OF THE DAY hydroxyzine HCl 25 mg tablet 25 mg PO BID gabapentin 100 mg capsule 100 mg PO TID cyanocobalamin (vitamin B-12) [Vitamin B-12] 500 mcg Tablet 500 mcg PO Q OTHER DAY lisinopril 5 mg tablet 5 mg PO QAM albuterol sulfate [ProAir HFA] 90 mcg/actuation Hfa Aerosol Inhaler 2 puff INHALATION Q4H PRN (Reason: Wheezing) aspirin 81 mg PO DAILY Discharge Orders: Discharge Order (Routine); Ordered 04/22/23 Ordered By: Paige Parekh/Other Patient Handouts: High Blood Sugar (Hyperglycemia), Hypoglycemia (Low Blood Sugar), Managing Type 2 Diabetes Admission Data Admit Date/Time: 04/20/23 16:13 Attending Provider: Paige Soliman Admit Provider: Paige Soliman Primary Care Provider: Jose Alejandro Krueger Other Providers: Luis Alfredo Hart ; [facility] ; Jerome Luna Other Interventions: Discharge Summary Assessment (RN) Last Done: 04/20/23 15:49
== END 2023-04-22 14:14 | DRG 56 ==
LOC: 2W 17:15 → ED 17:15 → SUATTDRO 04-19 00:27 → 2W 04-19 00:47